=== PATIENT | female | born 1965 | race Caucasian/White ===

== ENCOUNTER → 2017-11-30 07:32 | Outpatient (CLI) | payer OTHER, SELFPAY ==
--- NOTE | 2017-11-30 07:35 | HPBI_ITS ---
MAMMOGRAPHY - BILATERAL SCREENING REASON FOR EXAM: Female, 52 years old. Routine annual screening examination. PERTINENT HISTORY: Non-contributory. History of possible infection in the lower inner aspect of the right breast. TECHNIQUE: Digital bilateral breast misael (3D mammographic acquisition) in the CC and MLO projections. 2-D mediolateral oblique (MLO) and craniocaudad (CC) views of both breasts were obtained. CAD: Full Field Digital Mammography with Computer Added Detection was performed. COMPARISON: Comparison is made with prior study dated October 06, 2016 and April 23, 2013. FINDINGS: Breast Composition: The breasts are extremely dense, which lowers the sensitivity of mammography. There is a 1.8 cm Bard 1.7 cm nodular density in the inferior medial aspect of the right breast. An adjacent nodular density measuring 1.4 cm is also seen. Correlation with ultrasound is recommended for further evaluation. A tissue clip marker is once again seen in the deep upper medial aspect of the right breast. No other significant abnormalities are identified. HPBI/SCREENING MAMM (CAD), BILAT IMPRESSION: Nodular density seen in the inferior medial aspect of the right breast as described. Correlation with ultrasound is recommended. ASSESSMENT CATEGORY: BIRADS Category 0: Incomplete. Need additional imaging evaluation. A letter regarding these results will be sent to the patient by the facility within 30 days. Approximately 10% of breast cancers are not detected by mammography. A normal mammogram should not delay biopsy of a clinically suspicious abnormality. [id number] Electronically Signed: Josef Wright MD at 8:53 EST Tel [phone], Service support ,
== END ==
PROVIDERS: Family Provider Family Medicine; PCP Family Medicine; Visit Provider Obstetrics & Gynecology
DX: N63.14 Unspecified lump in the right breast, lower inner quadrant (principal)
CPT/HCPCS: 77063; 77067

== ENCOUNTER → 2017-12-04 15:03 | Outpatient (CLI) | payer OTHER, SELFPAY ==
--- NOTE | 2017-12-04 15:08 | US_ITS ---
STUDY: ULTRASOUND BREAST - RIGHT REASON FOR EXAM: Female, 52 years old. Abnormal screening mammogram. History of prior right breast surgery due to staphylococcus infection. TECHNIQUE: Axial and longitudinal images of the RIGHT breast were performed with a high resolution ultrasound transducer. COMPARISON: Comparison is made with prior mammogram dated November 30, 2017. FINDINGS: RIGHT Breast: At the 4:00 position breast at 3 cm from nipple, there is a 1.5 cm x 1.9 cm x 1.3 cm irregular spiculated hypoechoic density. A biopsy is recommended for further evaluation. At the 5:00 position of the breast at 3 cm from nipple, there is a 6 mm x 7 mm x 5 mm hypoechoic well-defined nodule. At the 3:30 position of the breast at 3 sinus from nipple, there is a 1.1 cm x 0.9 cm x 0.9 cm cyst. US/Breast Limited Unilateral IMPRESSION: Suspicious nodule measuring 1.5 cm x 1.9 cm x 1.3 cm is seen at the 4:00 position of the breast at 3 cm from nipple. A biopsy is recommended for further evaluation. ASSESSMENT CATEGORY: BIRADS Category 4: Suspicious - Biopsy Should Be Considered. A letter regarding these results will be sent to the patient by the facility within 30 days. Electronically Signed: Josef Wright MD at 8:04 EST Tel [phone], Service support ,
== END ==
PROVIDERS: Family Provider Family Medicine; PCP Family Medicine; Visit Provider Obstetrics & Gynecology
DX: R92.2 Inconclusive mammogram (principal)
CPT/HCPCS: 76642

== ENCOUNTER → 2017-12-18 12:17 | Outpatient (CLI) | payer OTHER, SELFPAY ==
--- NOTE | 2017-12-18 | IMM_PTH ---
PATIENT: BRUNILDA GAMING LOC: [facility] U#:[id number] AGE/SX: 60/F ROOM: RE12/18/[address]: Dr. Shahzad Mckay MD : 1965 BED: DIS: SPEC #: [id number] RECD: 12/19/17 11:12 STATUS: ELEAZAR REQ #: [id number] SYLVIA: 12/18/17 00:[address]: Shahzad Mckay DEPT: IMMUNOHISTOCHEMISTRY RECD BY: Zita Garland ENTERED: 12/19/17 11:13 SP TYPE: IMMUNO OTHR DR: Dr. Kevin Evans MD Tissues: Right breast, NOS Procedures: CALPONIN-1 (add) CK5-6 (add) CK8 (add) E-CAD (add) HER2 ANNA (add) KI-67 (add) P53 (add) VT (add) P40 (add) ER (initial) PHYSICIAN & INSTITUTION [address] [address] SPECIMEN INFORMATION: Tissue Source: Right breast Clinical Info: Abnormal mammogram Specimen Number: [id number] CPT code: 93294, 85777 x6, 89965 x3 METHODOLOGY: Deparaffinized sections of prefer/formalin-fixed tissue or PAP/DQ stained slides are incubated with monoclonal/polyclonal antibodies/oligonucleotide probes. Localization is made via biotin free immunoperoxidase method. Appropriate controls are performed and reacted as expected. Results on target cell population are indicated in the following table: RESULTS: ANTIBODY / CLONE RESULT P53 (DO-7) positive, 10% variable Ki-67 (30-9) positive, moderate CK8 (98bnkgI49) positive CK5-6 (D5 & 1684) negative Calponin-1 (VE179H) negative P40 (BC28) negative E-Cad (ECH-6) positive MORPHOMETRIC ANALYSIS ER (clone 6F11) >95%, strong VT (clone 16/1E2) >95% Her-2Neu (clone CB11) 0 The prognostic test for HER2 is performed on formalin-fixed paraffin embedded tissue. A 3+ (positive) staining pattern is defined as intense, homogeneous, complete, circumferential membranous staining in >10% of contiguous tumor cells. A similar weak (2+) staining pattern is interpreted as equivocal. TALISHA follow-up testing is recommended for all equivocal cases. Positivity/negativity for ER/VT is reported if > or < 1% of the tumor cells are immuno- reactive, respectively. The ASCO/CAP criteria is used for scoring. Reference: Journal of Clinical Oncology, 2013; 31:2066-0563 & 2010; 16:5881-4789. Duration of fixation: 10 Hrs; Sample Adequate: Yes. These assays have not been validated on decalcified tissues. Results should be interpreted with caution given the likelihood of false negativity on decalcified specimens. These tests were developed and their performance characteristics determined by [facility]. They may not have been cleared or approved by the U.S. Food and Drug Administration. The FDA has determined that such clearance or approval is not necessary. INTERPRETATION: Right breast, ultrasound-guided needle core biopsy: Invasive ductal carcinoma. Positive for estrogen receptors (favorable prognostic indicator). Positive for progesterone receptors (favorable prognostic indicator). Negative for overexpression of WKH9tgp. AM:laine 12/20/17
--- NOTE | 2017-12-18 09:30 | BRBX_PTH ---
PATIENT: BRUNILDA GAMING LOC: [facility] U#:[id number] AGE/SX: 60/F ROOM: RE12/18/[address]: Dr. Shahzad Mckay MD : 1965 BED: DIS: SPEC #: [id number] RECD: 12/18/17 12:07 STATUS: ELEAZAR REHalina #: [id number] SYLVIA: 12/18/17 09:[address]: Shahzad Mckay DEPT: SURGICAL PATHOLOGY RECD BY: Christopher Miles ENTERED: 12/18/17 13:49 SP TYPE: BREAST BX OTHR DR: MD Dr. Carey Shukla MD Tissues: Right breast, NOS Procedures: Surgery Specimen Level IV HEADER OPERATION: Ultrasound-guided needle core biopsy, right breast PRE-OP DIAGNOSIS: Abnormal mammogram R92.8 TISSUE SUBMITTED: Needle core biopsy, right breast ISCHEMIC TIME: <30 seconds FIXATION TIME: 10 hours MICROSCOPIC DIAGNOSIS Right breast, ultrasound-guided needle core biopsy: Invasive ductal carcinoma with the following characteristics: Maximal length ? 1 cm Nuclear Grade ? 2/3 Other findings ? focal intraductal hyperplasia without atypia and mild fibrocystic change. AM:laine 12/19/17 COMMENT ER/MA/Wbz4rnp studies are being performed on sections of tumor and the results from this study will be reported separately ([id number]). MICROSCOPIC DESCRIPTION Slides are reviewed. GROSS DESCRIPTION Received in fixative is one container labeled with the patient's name and designated breast biopsy. The specimen consists of two elongated fragments of gudino tissue with an average length of 1.5 cm and average diameter of 0.1 cm. The specimen is totally submitted in one cassette. / AM:laine 12/18/17 TC:0 CPT: 50211
== END ==
PROVIDERS: Family Provider Family Medicine; PCP Family Medicine; Visit Provider Surgery
DX: R92.8 Other abnormal and inconclusive findings on diagnostic imaging of breast (principal)
CPT/HCPCS: 88305; 88341; 88342

== ENCOUNTER → 2018-01-02 07:55 | Outpatient (CLI) | payer OTHER, SELFPAY ==
--- NOTE | 2018-01-02 07:58 | MRI_ITS ---
STUDY: BILATERAL BREAST MR WITHOUT AND WITH CONTRAST REASON FOR EXAM: Female, 52 years old. Diagnosis of malignant neoplasm of the upper inner quadrant of right breast by biopsy December 18, 2017. Preoperative evaluation. History of prior staph infection in 1983. TECHNIQUE: Multi-sequence multi-echo imaging of both breasts was performed with a dedicated breast coil. T1-weighted and T2-weighted images were performed before the administration of contrast. T1-weighted images were also performed after the administration of 6 mL of Gadavist contrast intravenously without complications. COMPARISON: Bilateral mammograms dated April 23, 2013 and November 30, 2017 and right breast ultrasound dated December 04, 2017. FINDINGS: RIGHT BREAST: The breast tissue is scattered fibroglandular densities with moderate background enhancement. In the upper inner quadrant of the right breast in the area of the abnormality seen on the ultrasound and mammogram, there is an enhancing irregular mass measuring approximately 1.8 cm x 1.3 cm x 1.6 cm. This enhancing area is likely a combination of the known index lesion and the sequelae of the biopsy. The original mass on ultrasound measured 1.5 cm x 1.9 cm x 1.3 cm, slightly smaller than on the breast MRI study. LEFT BREAST: The breast tissue is scattered fibroglandular densities with moderate background enhancement. There are no abnormal enhancing masses or areas of non-mass enhancement in the left breast. There are no enlarged or abnormal lymph nodes. There is no abnormality in the visualized regions of the chest or liver. MRI/Breast w/o and/or W Cont Bilat IMPRESSION: Irregular enhancing mass in the upper inner quadrant of the right breast, as outlined above, representing the index lesion. No other significant abnormality identified. CATEGORY: BIRADS Category 6: Known Biopsy-Proven Malignancy - Appropriate Action Should Be Taken. A letter regarding these results will be sent to the patient by the facility within 30 days. Electronically Signed: Estuardo Ross MD at 14:43 EST , Service support ,
== END ==
PROVIDERS: Family Provider Family Medicine; PCP Family Medicine; Visit Provider Surgery
DX: C50.211 Malignant neoplasm of upper-inner quadrant of right female breast (principal)
CPT/HCPCS: 77059; A9585; A4216; C8908

== ENCOUNTER 2018-01-21 05:39 | Day surgery (SDC) | payer OTHER, SELFPAY ==
--- NOTE | 2018-01-21 | IMM_PTH ---
PATIENT: BRUNILDA GAMING LOC: [facility] U#:[id number] AGE/SX: 52/F ROOM: RE01/21/[address]: Dr. Shahzad Mckay MD : 1965 BED: DIS: 01/21/2018 SPEC #: [id number] RECD: 01/23/18 14:20 STATUS: ELEAZAR REHalina #: [id number] SYLVIA: 01/21/18 00:[address]: Shahzad Mckay DEPT: IMMUNOHISTOCHEMISTRY RECD BY: Zita Garland ENTERED: 01/23/18 14:36 SP TYPE: IMMUNO OTHR DR: Dr. Kevin Evans MD Tissues: A - Axillary lymph node, NOS C - Axillary lymph node, NOS Procedures: CK8 (add) Pankeratin (initial) Pankeratin (add) PHYSICIAN & INSTITUTION [place] [address] SPECIMEN INFORMATION: Tissue Source: A ? [place] node right breast, C ? Additional lymph nodes, right breast Clinical Info: Invasive ductal carcinoma, right breast Specimen Number: [id number] A, C1-C3 CPT code: 76284 x2, 13770 x6 METHODOLOGY: Deparaffinized sections of prefer/formalin-fixed tissue or PAP/DQ stained slides are incubated with monoclonal/polyclonal antibodies/oligonucleotide probes. Localization is made via biotin free immunoperoxidase method. Appropriate controls are performed and reacted as expected. Results on target cell population are indicated in the following table: RESULTS: ANTIBODY / CLONE RESULT Block A AE1-3 (AE1/AE3/PCK26) negative CK8 (31tudeF74) negative Block C1 AE1-3 (AE1/AE3/PCK26) negative CK8 (93gnqeP03) negative Block C2 AE1-3 (AE1/AE3/PCK26) negative CK8 (35rsgiK23) negative Block C3 AE1-3 (AE1/AE3/PCK26) negative CK8 (65xdzsP61) negative These tests were developed and their performance characteristics determined by [facility]. They may not have been cleared or approved by the U.S. Food and Drug Administration. The FDA has determined that such clearance or approval is not necessary. INTERPRETATION: A. [place] node, right breast: One out of one lymph node negative for carcinoma. C. Additional lymph nodes, right breast: Four out of four lymph nodes negative for carcinoma. AM:laine 01/23/18 Comment: A ? This lymph node contains micrometastatic carcinoma in one H & E section.
[2018-01-21 05:55] VITALS: BP 102/57; PULSE 70; RESP 14; TEMP 36.2; O2SAT 99; BMI 20.5
[2018-01-21 06:01] LABS: Internal QC Validated? YES +Cl - CLEAR BKGD; Pregnancy, Urine Negative Negative
[2018-01-21] MEDS: Bupivacaine Mpf 0.5% 30 ML VIAL (06:50)
[2018-01-21] MEDS: Cefazolin 2 GM in 0.9% Normal Saline 100 ML IV (07:12)
[2018-01-21] MEDS: Isosulfan Blue 1% 5 ML Vial (07:20)
--- NOTE | 2018-01-21 07:46 | HPBI_ITS ---
SURGICAL BREAST SPECIMEN RADIOGRAPH CLINICAL: Document presence of mass in biopsy specimen. FINDINGS: Specimen shows presence of mass. Electronically Signed: Josef Wright MD at 8:57 EDT Tel [phone], Service support , HPBI/Breast Biopsy Specimen
--- NOTE | 2018-01-21 07:51 | AXNB_PTH ---
PATIENT: BRUNILDA GAMING LOC: [facility] U#:[id number] AGE/SX: 52/F ROOM: RE01/21/[address]: Dr. Shahzad Mckay MD : 1965 BED: DIS: 01/21/2018 SPEC #: [id number] RECD: 01/21/18 07:54 STATUS: ELEAZAR REHalina #: [id number] SYLVIA: 01/21/18 07:[address]: Shahzad Mckay DEPT: SURGICAL PATHOLOGY RECD BY: Jalen Amin ENTERED: 01/21/18 11:25 SP TYPE: AX NODE BX OTHR DR: Dr. Kevin Evans MD Tissues: A - Axillary lymph node, NOS B - Right breast, NOS C - Axillary lymph node, NOS D - Skin of breast, NOS Procedures: Frozen Section (charge) Frozen Section Add'l ([facility]) Surgery Specimen Level IV Surgery Specimen Level V Surgery Specimen Level Frozen (no charge) HEADER OPERATION: Right breast, lumpectomy, sentinel node biopsy, NL in OR PRE-OP DIAGNOSIS: Invasive ductal carcinoma, right breast ER positive TISSUE SUBMITTED: A - [place] node right breast FS, B ? Right breast lumpectomy ? single long suture medial, double long lateral towards nipple, double short posterior towards muscle, C - Additional lymph nodes right breast FS, D - Ellipse of skin biopsy site right breast FROZEN SECTION DIAGNOSIS A. [place] lymph node, right breast: One lymph node positive for metastatic carcinoma (~2 mm in greatest dimension). C. Additional lymph nodes, right breast: Four out of flour lymph nodes, negative for metastatic carcinoma SJ:cc 01/21/18 MICROSCOPIC DIAGNOSIS A. Right axillary sentinel lymph node #1, biopsy: One out of one lymph node positive for micrometastatic carcinoma (1.5 mm in greatest dimension). B. Right breast, lumpectomy: Invasive ductal carcinoma. See complete cancer check list below. C. Right axillary additional sentinel lymph nodes, biopsy: Four out of four lymph nodes negative for metastatic carcinoma. D. Right breast, biopsy site, skin: No pathologic change. No evidence of carcinoma. AM:laine 01/23/18 COMMENT A. The focus of metastatic carcinoma measuring 1.5 mm is present in one frozen section slide only. A & C. Immunohistochemistry ([id number]) supports the above diagnosis. B. INVASIVE BREAST CANCER SUMMARY: Specimen: Partial breast Procedure: Excision with wire guidance Specimen integrity: Single intact specimen. Specimen size: 6 x 5 x 2.5 cm Specimen laterality: Right breast Invasive tumor size: 2.2 x 1.5 x 1.5 cm Tumor focality: Single focus of invasive carcinoma Macroscopic and Microscopic extent of tumor: Skin: Not present Nipple: Not present Skeletal muscle: Not present Histologic type of invasive carcinoma: Invasive ductal carcinoma Histologic Grade (Albert grade): Glandular/tubular differentiation score: 2 Nuclear pleomorphism score: 3 Mitotic count score: 1 Overall grade: Grade 2 (total score of 6) Margins: Uninvolved by invasive carcinoma. Distance from closest (inferior) margin: 0.1 cm Lymph-Vascular invasion: Not identified Dermal lymph-vascular invasion: Not applicable Ductal carcinoma in situ (DCIS): Estimated size (extent) of DCIS: 6 x 2 x 2 mm Number of blocks with DCIS: 3 of 12 Architectural patterns: Cribriform Nuclear grade: Grade 2 Necrosis: Not focally present Margins: Uninvolved by invasive carcinoma. Distance from closest (inferior) margin: 0.1 cm Lobular carcinoma in situ (LCIS): Not present Lymph nodes: Number of sentinel lymph nodes examined - 5 Total number of lymph nodes examined (sentinel and nonsentinel) ? 5 Number of lymph nodes positive for micrometastatic carcinoma ? 1 (see specimen A) No evidence of macrometastatic carcinoma or isolated tumor cells. Microcalcifications: Present in non-neoplastic tissue Treatment effect - no known presurgical therapy Additional pathologic findings: Fibrocystic change, usual intraductal hyperplasia and focal atypical intraductal hyperplasia and changes consistent with previous biopsy. Ancillary studies: Previously performed on same tumor ([id number] / [id number]). ER: >95%, nuclear stain CO: >95% nuclear stain Her2 ravi: 0 (IHC) Her2 by dual TALISHA: Not performed PATHOLOGIC STAGE: pT2 N1mi Mx The above summary is in compliance with [employer] [place] [employer] (CAP) Cancer Protocols Checklist and [place] [employer] Committee on Cancer (AJCC), Staging Manual, 8th Ed. MICROSCOPIC DESCRIPTION Slides are reviewed. GROSS DESCRIPTION A - Received fresh for frozen section diagnosis labeled with the patient's name is a specimen designated sentinel node right breast. The specimen consists of a piece of adipose tissue containing a nodule consistent with lymph node measuring 3 x 1.5 x 1 cm. The specimen is bisected and submitted entirely for frozen section diagnosis in one cassette. / SJ:laine 01/21/18 B - Received fresh for intraoperative consultation labeled with the patient's name and designated right breast lumpectomy. The specimen consists of a piece of yellow adipose tissue with needle localization measuring 6 x 5 x 2.5 cm. The specimen is oriented as follows: single long suture - medial, double long suture - lateral, double short suture - posterior towards nipple. The specimen is inked as follows: anterior ? yellow, posterior ? black, superior ? blue, inferior ? green, medial ? red and lateral ? orange. Serial sections reveal a mass measuring 2.2 x 1.5 x 1.5 cm. This mass is 0.1 cm away from the closest inferior margin. This information is conveyed to the surgeon intraoperatively. Newsp[employer] Column[employer] sections are submitted in 12 cassettes as follows: 1 ? perpendicular superior, inferior and posterior margins, 2 ? perpendicular medial and lateral margins, 3-9 ? entire tumor with closest anterior margin, 10-12 ? district representative sections from other areas of uninvolved breast tissue. / SJ:laine 01/22/18 C - Received fresh for frozen section diagnosis labeled with the patient's name is a specimen designated additional lymph nodes right breast. The specimen consists of a piece of adipose tissue measuring 3.5 x 3.5 x 1 cm. Four lymph nodes are identified measuring 0.3 to 1 cm in greatest dimension. The lymph nodes are submitted in entirety for frozen section diagnosis in three cassettes as follows: 1 ? frozen section, one bisected lymph node, 2 ? frozen section, two lymph nodes, one lymph node inked black and other lymph node inked blue, 3 ? frozen section, one bisected lymph node. / SJ:laine 01/21/18 D - Received in fixative is one container labeled with the patient's name and designated ellipse of skin biopsy site, right breast. The specimen consists of a piece of gudino-white skin ellipse measuring 0.5 x 0.2 x 0.2 cm. The entire specimen is submitted in one cassette. / ESTUARDO:laine 01/21/18 TC:0 CPT: 51855, 77603 x2, 23507, 71303, 11331 x2, 26260 x2
--- NOTE | 2018-01-21 07:56 | PCM.OPRPT ---
Problem List (1) Malignant neoplasm of lower-inner quadrant of right female breast Status: Acute Qualifiers: Estrogen receptor status: positive Qualified Code(s): C50.311 - Malignant neoplasm of lower-inner quadrant of right female breast; Z17.0 - Estrogen receptor positive status [ER+] Report of Operation Date of Procedure: 01/21/18 Pre-Operative Diagnosis: C50.311 malignancy of the lower inner quadrant of the right breast. Z17.0 estrogen receptor positive Post-Operative Diagnosis: Same Surgery/Procedure Performed:: 1. 97528 Ultrasound-guided wire localization of malignancy of lower inner quadrant of right breast. 2. 29335 Injection of 5 cc of Lymphazurin blue so, really at the right breast. 3. 07300 Partial mastectomy with right axillary node dissection. 4. 20601 [place] lymph node biopsy right breast Type of Anesthesia:: General Anesthesiologist: Irineo Mccord Estimated Blood Loss (mL): < 25cc flu Fluids Replaced: 700cc Description of Procedure: Patient was brought into the operating room. Placed in the supine position. Under excellent general anesthetic the breast was prepped with alcohol. I ultrasound and identified the lesion with which was in the lower inner quadrant of the breast. I placed a guidewire into the lesion. I then injected 5 cc of Lymphazurin blue. I massaged the breast for 5 minutes. The breast and axillary area were then sterilely prepped and draped in the usual fashion. I made an incision around the previous biopsy site and extended the incision medially. I dissected down using the guidewires my guide I stayed close to the skin and remove this lesion all the way down to the muscle and then rotated it from a medial to lateral standpoint and transected it laterally with use of electrocautery. I marked my incision with single long medial double long lateral towards the nipple double short posterior towards the muscle and the guidewire came out anterior towards the skin. The skin was not involved with this tumor whatsoever. I use electrocautery for good hemostasis. The wound was brought together with deep dermal stitches of 3-0 Vicryl then a running 4-0 Monocryl. I injected local into the axilla made an incision and dissected down and including the clavipectoral fascia I immediately identified a blue lymph node with the use of the harmonic dissector remove this. I sent this for frozen section and it came back positive for metastatic cancer. I then performed a limited axillary node dissection taking out level 1 lymph nodes with the use of the harmonic dissector. I sent these to pathology for frozen section these came back negative. The axilla was closed with deep subcu sutures of 2-0 Vicryl then deep dermal sutures of 3-0 Vicryl. Dermabond was applied. I spoke to the patient postoperatively and let her know that her lymph node was positive. I still think that she is able to go home and will discharge her. I will see her back in 1 week and go over the final path report with her at that time. - Admit VTE Documentation VTE Present on Admission: No VTE Mechan Device Prophylaxis: SCD's VTE Pharm Prophylaxis ordered?: No Reason prophylaxis not ordered:: Treatment Not Indicated
--- NOTE | 2018-01-21 08:00 | DCINST_ITS ---
Discharge Diet: No Restrictions Discharge Activity: May Not Drive - for 2-3 days or while taking narcotic pain meds. May shower in (days): 1 Lifting Restrictions: 10 pounds for 1 week. Call your doctor if your incision/area has: Continuous Slow Oozing, Sudden Increased Bleeding Call your doctor if you observe: Fever of 101 or Higher Suture Line Care: Avoid Pulling/Pushing, Avoid Pinching/Bending Remove Dressing in (days):: 1 - Remove bulky dressing tomorrow. May leave any opsite dressing for 3-4 days. Keep dressing in place until your follow-up appointment. Additional Dressing/Incision Instructions:: Remove bulky dressing tomorrow. May leave any opsite dressing for 3-4 days. Keep dressing in place until your follow-up appointment. Allergies/Adverse Reactions: Allergies environmental Allergy (Mild, Uncoded 01/15/18 15:28) Unknown Medications to take at Discharge albuterol sulfate HFA 90 mcg/actuation aerosol inhaler 1 puff INHALATION PRN PRN 12/14/17 fluticasone 100 mcg-salmeterol 50 mcg/dose blistr powdr for inhalation 1 puff INHALATION BID 12/14/17 fluticasone 50 mcg/actuation nasal spray,suspension 50 mcg INTRANASAL QDAY PRN 12/14/17 levothyroxine 100 mcg capsule 100 mcg PO DAILY 12/14/17 Oxycodone HCl/Acetaminophen [Percocet 5/325] 1 - 2 tab PO Q4H PRN PRN 4 Days # 30 tab 01/21/18 The following prescriptions were given: Oxycodone HCl/Acetaminophen [Percocet 5/325] 1 - 2 tab PO Q4H PRN PRN 4 Days # 30 tab PRN Reason: Pain Primary Care Physician: Kevin Evans [Primary Care Provider] -
--- NOTE | 2018-01-21 08:00 | OP.PCM_ITS ---
Problem List (1) Malignant neoplasm of lower-inner quadrant of right female breast Status: Acute Qualifiers: Estrogen receptor status: positive Qualified Code(s): C50.311 - Malignant neoplasm of lower-inner quadrant of right female breast; Z17.0 - Estrogen receptor positive status [ER+] Report of Operation Date of Procedure: 01/21/18 Pre-Operative Diagnosis: C50.311 malignancy of the lower inner quadrant of the right breast. Z17.0 estrogen receptor positive Post-Operative Diagnosis: Same Surgery/Procedure Performed:: 1. 61784 Ultrasound-guided wire localization of malignancy of lower inner quadrant of right breast. 2. 08339 Injection of 5 cc of Lymphazurin blue so, really at the right breast. 3. 66137 Partial mastectomy with right axillary node dissection. 4. 49871 [place] lymph node biopsy right breast Type of Anesthesia:: General Anesthesiologist: Irineo Mccord Estimated Blood Loss (mL): < 25cc flu Fluids Replaced: 700cc Description of Procedure: Patient was brought into the operating room. Placed in the supine position. Under excellent general anesthetic the breast was prepped with alcohol. I ultrasound and identified the lesion with which was in the lower inner quadrant of the breast. I placed a guidewire into the lesion. I then injected 5 cc of Lymphazurin blue. I massaged the breast for 5 minutes. The breast and axillary area were then sterilely prepped and draped in the usual fashion. I made an incision around the previous biopsy site and extended the incision medially. I dissected down using the guidewires my guide I stayed close to the skin and remove this lesion all the way down to the muscle and then rotated it from a medial to lateral standpoint and transected it laterally with use of electrocautery. I marked my incision with single long medial double long lateral towards the nipple double short posterior towards the muscle and the guidewire came out anterior towards the skin. The skin was not involved with this tumor whatsoever. I use electrocautery for good hemostasis. The wound was brought together with deep dermal stitches of 3-0 Vicryl then a running 4-0 Monocryl. I injected local into the axilla made an incision and dissected down and including the clavipectoral fascia I immediately identified a blue lymph node with the use of the harmonic dissector remove this. I sent this for frozen section and it came back positive for metastatic cancer. I then performed a limited axillary node dissection taking out level 1 lymph nodes with the use of the harmonic dissector. I sent these to pathology for frozen section these came back negative. The axilla was closed with deep subcu sutures of 2-0 Vicryl then deep dermal sutures of 3-0 Vicryl. Dermabond was applied. I spoke to the patient postoperatively and let her know that her lymph node was positive. I still think that she is able to go home and will discharge her. I will see her back in 1 week and go over the final path report with her at that time. - Admit VTE Documentation VTE Present on Admission: No VTE Mechan Device Prophylaxis: SCD's VTE Pharm Prophylaxis ordered?: No Reason prophylaxis not ordered:: Treatment Not Indicated
[2018-01-21 08:45] VITALS: BP 102/57; BP 104/60; PULSE 78; RESP 18; TEMP 36.4; O2SAT 97
[2018-01-21 09:00] VITALS: BP 102/57; BP 110/64; PULSE 77; RESP 18; O2SAT 98
[2018-01-21 09:15] VITALS: BP 102/57; BP 110/63; PULSE 71; RESP 18; O2SAT 98
[2018-01-21 09:27] VITALS: BP 102/57; BP 98/61; PULSE 64; RESP 18; TEMP 36.4; O2SAT 98
[2018-01-21 10:30] VITALS: BP 102/57
== END 2018-01-21 10:31 | disposition home or self-care (01) ==
LOC: SDC 05:42 → AC 05:42
PROVIDERS: Anesthesiology; Family Provider Family Medicine; PCP Family Medicine; Visit Provider Surgery
PROC: (CPT 19301; principal; 2018-01-21 07:00)
DX: C50.311 Malignant neoplasm of lower-inner quadrant of right female breast (principal); C77.3 Secondary and unspecified malignant neoplasm of axilla and upper limb lymph nodes; Z17.0 Estrogen receptor positive status [ER+]; J45.909 Unspecified asthma, uncomplicated; E03.9 Hypothyroidism, unspecified; Z79.899 Other long term (current) drug therapy; Z80.0 Family history of malignant neoplasm of digestive organs
CPT/HCPCS: 00404; 19302; 38525; 38900; 76098; 81025; 88305; 88307; 88309; 88331; 88332; 88341; 88342; J7120; A4216; Q9968

== ENCOUNTER 2018-02-04 12:23 | Day surgery (SDC) | payer OTHER, SELFPAY ==
[2018-02-04] VITALS (10 sets, daily range): BP systolic 102–112; BP diastolic 44–70; PULSE 53–69; RESP 14–18; TEMP 36.7–36.8; O2SAT 96–100; BMI 21.3
[2018-02-04 12:55] LABS: Internal QC Validated? YES +Cl - CLEAR BKGD; Pregnancy, Urine Negative Negative
[2018-02-04] MEDS: Cefazolin 2 GM in 0.9% Normal Saline 100 ML IV (13:28)
--- NOTE | 2018-02-04 13:36 | DCINST_ITS ---
Discharge Diet: No Restrictions - Pain medication may cause nausea. You should typically eat light foods as you take your pain medication. Discharge Activity: May Shower - with the bandage in place 1-2 days after surgery. DO NOT SHOWER WHEN YOUR PORT IS ACCESSED. Additional Activity Instructions:: May not drive, work with heavy equipment, or sign legal documents for [address] if you are no longer taking narcotic pain medications. You may drive when you are no longer taking pain medications. Additional Dressing/Incision Instructions:: Leave the bandage on for 2-3 days. When you remove the bandage, leave the steri-strips intact until they fall off. Allergies/Adverse Reactions: Allergies oxycodone [From Percocet] Allergy (Mild, Verified 02/01/18 11:22) Hives environmental Allergy (Mild, Uncoded 02/01/18 11:22) Unknown Medications to take at Discharge albuterol sulfate HFA 90 mcg/actuation aerosol inhaler 1 puff INHALATION PRN PRN 12/14/17 fluticasone 100 mcg-salmeterol 50 mcg/dose blistr powdr for inhalation 1 puff INHALATION BID 12/14/17 fluticasone 50 mcg/actuation nasal spray,suspension 50 mcg INTRANASAL QDAY PRN 12/14/17 levothyroxine 100 mcg capsule 100 mcg PO DAILY 12/14/17 Hydrocodone Bitart/Apap 5-325 [[place] 5MG-325MG] 1 - 2 tab PO Q4H PRN PRN 4 Days #30 tab 02/04/18 The following prescriptions were given: Hydrocodone Bitart/Apap 5-325 [[place] 5MG-325MG] 1 - 2 tab PO Q4H PRN PRN 4 Days #30 tab PRN Reason: Pain Primary Care Physician: Kevin Evans [Primary Care Provider] - Please Follow Up With: Shahzad Mckay MD - [phone] When: Please plan to follow up in 7 days in the office.
--- NOTE | 2018-02-04 13:36 | PCM.OPRPT ---
Problem List (1) Malignant neoplasm of lower-inner quadrant of right female breast Status: Chronic Qualifiers: Estrogen receptor status: positive Report of Operation Date of Procedure: 02/04/18 Pre-Operative Diagnosis: c50.311 right breast cancer lower inner quadrant Post-Operative Diagnosis: Same Surgery/Procedure Performed:: Left IJ PowerPort Type of Anesthesia:: MAC Anesthesiologist: Irineo Mccord Description of Procedure: Patient was brought into the operating room placed in the supine position. The patient was then placed in the headdown position and I ultrasound her neck and identified the left internal jugular vein. I marked the neck and chest appropriately. The neck and chest were then sterilely prepped and draped in the usual fashion. Local was injected in the neck Seldinger's technique was used to gain access to the internal jugular vein with the aid of ultrasound guidance. I placed the guidewire through the needle removed the needle and then used fluoroscopy to confirm proper placement of the guidewire. I injected local into the chest. Incision was made. Electrocautery was used to create a pocket for the port. A skin gucci was made in the neck. Dilator was placed over the guidewire removed the dilator and sheath were placed over the guidewire removing the dilator and guidewire a single lumen catheter was placed over the sheath. Sheath was removed that difficulty. Fluoroscopy was once again used to confirm proper placement of the catheter. I tunneled from the pocket over the collarbone into the neck and brought the catheter down. I cut the catheter to length placed the locking hub on the catheter the port onto the catheter and secured the 2 with the locking hub. It flushed and irrigated well was flushed with 5 cc of hep flush. The port was then sutured into the pocket created with 2 sutures of 2-0 Prolene. Skin incisions were closed with deep dermal stitches of 3-0 Vicryl and then a running 4-0 Monocryl. Dermabond was applied sterile dressings were applied and the patient tolerated the procedure well. - Admit VTE Documentation VTE Present on Admission: No VTE Mechan Device Prophylaxis: SCD's VTE Pharm Prophylaxis ordered?: No Reason prophylaxis not ordered:: Treatment Not Indicated
[2018-02-04] MEDS: Bupivacaine Mpf 0.5% 30 ML VIAL (13:43)
[2018-02-04] MEDS: 0.9% NaCl Peripheral Flush Adult/Peds IV (13:56)
--- NOTE | 2018-02-04 14:15 | RAD_ITS ---
STUDY: X-RAY CHEST REASON FOR EXAM: Female, 52 years old. POST OP LEFT VASCULAR PORT PLACEMENT TECHNIQUE: Single AP portable view of the chest. COMPARISON: None. FINDINGS: MediPort is seen on the left side is in good position its tip is at the lower part of the superior vena cava. The lungs are clear and expanded. There is no demonstrated pleural abnormality. Normal size heart. Normal mediastinum and marcello. Normal visualized pulmonary arteries. Normal visualized aortic arch and descending thoracic aorta. There is a dextroscoliosis of the thoracic spine. Normal visualized ribs, clavicles, and shoulders. There is no demonstrated abnormality of the visualized soft tissue structures of the upper abdomen. RAD/Chest 1 View (Portable) IMPRESSION: MediPort is seen on the left side is in good position its tip is at the lower part of the superior vena cava. Electronically Signed: Sean Oden MD at 14:48 EDT Tel , Service support ,
== END 2018-02-04 15:48 | disposition home or self-care (01) ==
LOC: SDC 12:24 → AC 12:26
PROVIDERS: Anesthesiology; Family Provider Family Medicine; PCP Family Medicine; Visit Provider Surgery
PROC: (CPT 36561; principal; 2018-02-04 14:55)
DX: C50.311 Malignant neoplasm of lower-inner quadrant of right female breast (principal); Z17.0 Estrogen receptor positive status [ER+]; Z45.2 Encounter for adjustment and management of vascular access device; J45.909 Unspecified asthma, uncomplicated; E03.9 Hypothyroidism, unspecified; Z79.899 Other long term (current) drug therapy
CPT/HCPCS: 36561; 71045; 77001; 81025; J7120; C1788

== ENCOUNTER → 2018-02-06 14:41 | Outpatient (CLI) | payer OTHER, SELFPAY ==
--- NOTE | 2018-02-06 14:44 | ECHOD_ITS ---
Reason For Study: Pre Chemo, Preop Procedure This was a 2D Doppler, Color Flow transthoracic echocardiogram. Exam performed in department. Left Ventricle Normal size and thickness. The estimated ejection fraction is 50 %. Stage 1 diastolic dysfunction. There is mild global hypokinesis of the left ventricle. Right Ventricle Normal size and thickness. Normal systolic function. Atria Normal left atrium. Normal right atrium. Normal atrial septum. Mitral Valve The mitral valve is structurally normal. No prolapse or stenosis seen. Trivial eccentric mitral valve insufficiency. Tricuspid Valve Normal tricuspid valve. Mild (1+) tricuspid valve insufficiency. Right ventricular systolic pressure estimated to be 20 mmHg. Aortic Valve Normal aortic valve. Trisinus/trileaflet aortic valve. Pulmonic Valve Normal pulmonic valve. Great Vessels Normal aortic root. Normal arch. Normal inferior vena cava. Inferior vena cava collapse with sniff. Pericardium/Pleural No pericardial effusion. MMode/2D Measurements & Calculations LVIDd: 4.5 cm IVSd: 0.81 cm Ao root diam: 2.9 cm LVIDs: 3.4 cm LVPWd: 0.68 cm LA dimension: 3.2 cm RVDd: 2.4 cm FS: 25.3 % LAV(MOD-bp): 31.4 ml EDV(MOD-sp4): 93.8 ml SV(MOD-sp4): 53.3 ml LAV(MOD-bp) Indexed: 18.7 ml/m2 ESV(MOD-sp4): 40.6 ml LAV(MOD-sp2): 36.5 ml EF(MOD-sp4): 56.8 % LAV(MOD-sp4): 26.4 ml LA A4 area: 12.6 cm2 RA A4 area: 10.1 cm2 Doppler Measurements & Calculations MV E max donald: 53.5 cm/sec Lat Peak E' Donald: 12.1 cm/sec Med Peak E' Donald: 6.4 cm/sec MV A max donald: 71.8 cm/sec E/E' lat: 4.4 E/E' med: 8.4 MV E/A: 0.74 Ao V2 max: 105.0 cm/sec LV V1 max: 92.6 cm/sec PA V2 max: 90.5 cm/sec Ao max P.4 mmHg LV V1 max P.4 mmHg Ao V2 mean: 70.5 cm/sec Ao mean P.3 mmHg Ao V2 VTI: 20.2 cm TR max donald: 194.4 cm/sec TR max P.2 mmHg Interpretation Summary The estimated ejection fraction is 50 %. There is mild global hypokinesis of the left ventricle. Stage 1 diastolic dysfunction. Trivial eccentric mitral valve insufficiency. Mild (1+) tricuspid valve insufficiency. Right ventricular systolic pressure estimated to be 20 mmHg. There is no comparison study available. Ordering Physician: Dominic Presley Referring Physician: Kevin Evans Performed By: Felicia Olea RDCS, RVT
== END ==
PROVIDERS: Family Provider Family Medicine; PCP Family Medicine; Visit Provider Internal Medicine Medical Oncology
DX: Z01.818 Encounter for other preprocedural examination (principal); C50.311 Malignant neoplasm of lower-inner quadrant of right female breast
CPT/HCPCS: 93306

== ENCOUNTER → 2018-06-26 10:53 | Outpatient (CLI) | payer OTHER, SELFPAY ==
[2018-03-19 08:56] VITALS: BMI 21.2
== END ==
PROVIDERS: Family Provider Family Medicine; PCP Family Medicine; Visit Provider Nurse Practitioner Family
DX: Z13.820 Encounter for screening for osteoporosis (principal); Z79.811 Long term (current) use of aromatase inhibitors
CPT/HCPCS: 77080

== ENCOUNTER 2018-07-09 10:16 | Day surgery (SDC) | payer OTHER, SELFPAY ==
[2018-03-19 08:56] VITALS: BMI 21.2
[2018-07-09 11:00] VITALS: BP 111/52; PULSE 80; RESP 16; TEMP 36.8; O2SAT 97; BMI 20.9
[2018-07-09 11:17] LABS: Prothrombin Time (Protime)PT. 12.7 SECONDS (11.7-14.9)
[2018-07-09 11:18] LABS: Partial Thromboplast Time 30.7 Seconds (24.1-36.2)
--- NOTE | 2018-07-09 11:51 | PCM.DC ---
- Discharge Diagnoses Reason(s) for Visit for Discharge Instructions: laparoscopic bilateral salpingoophorectomy You will use the following diet at home:: No restrictions Discharge Activity: May not drive while taking narcotic pain medications., May Shower, May Take a Tub Bath Return to work on:: 07/15/18 - Ok to return to work sooner, if comfortable. May resume sexual activity in: 1 week Call your doctor if your incision/area has: Increased Pain/ Swelling Call your doctor if you observe: Fever of 101 or Higher, Inability to have a bowel movement, Uncontrolled pain Change Dressing in (Days):: 4 Remove Dressing in (days):: 4 Cleanse incision/area with: Soap & Water, Keep Dressing Clean & Dry Additional Instructions: OK to resume activity as tolerated, comfortable. Take either TWO Aleve or THREE Ibuprofen (200 mg each) every 8 hr for pain. Add Vicodin 1 to 2 tab every 6 hr as needed for more severe pain. Allergies/Adverse Reactions: Allergies oxycodone [From Percocet] Allergy (Mild, Verified 07/05/18 08:07) Hives environmental Allergy (Mild, Uncoded 07/05/18 08:07) Unknown Medications to take at Discharge albuterol sulfate HFA 90 mcg/actuation aerosol inhaler 1 puff INHALATION PRN PRN 12/14/17 fluticasone 100 mcg-salmeterol 50 mcg/dose blistr powdr for inhalation 1 puff INHALATION BID 12/14/17 fluticasone 50 mcg/actuation nasal spray,suspension 50 mcg INTRANASAL QDAY PRN 12/14/17 levothyroxine 100 mcg capsule 100 mcg PO DAILY 12/14/17 Vitamin B Complex [Balanced B-50] 1 tablet PO DAILY 03/06/18 Ferrous Gluconate 325 mg PO BID 05/13/18 Hydrocodone/Acetaminophen [Vicodin 5-300 mg Tablet] 1 - 2 tablet PO Q6H PRN PRN 2 Days #10 tablet 07/09/18 Naproxen [Naprosyn] 250 - 500 mg PO TID PRN PRN #30 tab 07/09/18 The following prescriptions were given: Hydrocodone/Acetaminophen [Vicodin 5-300 mg Tablet] 1 - 2 tablet PO Q6H PRN PRN 2 Days #10 tablet PRN Reason: Mod-Severe Pain (4-08/14) Naproxen [Naprosyn] 250 - 500 mg PO TID PRN PRN #30 tab PRN Reason: Mild-Mod Pain (-03/14) Primary Care Physician: Kevin Evans [Primary Care Provider] - Test Results: Test results from this visit will be discussed in further detail at your follow-up appointment, if applicable. Please Follow Up With: Carey Yen MD - [phone] When: in two weeks for postoperative appointment, incision check. Proposed Discharge Date: 07/09/18
[2018-07-09] MEDS: Bupiv/Epi 0.5% Mpf 30 ML Vial (12:30)
[2018-07-09 13:00] VITALS: BP 111/50; BP 98/67; PULSE 64; RESP 17; TEMP 37.1; O2SAT 100
[2018-07-09 13:15] VITALS: BP 111/50; BP 91/47; PULSE 54; RESP 16; O2SAT 100
[2018-07-09 13:30] VITALS: BP 111/50; BP 99/51; PULSE 61; RESP 16; O2SAT 100
[2018-07-09 13:45] VITALS: BP 111/50; BP 92/50; PULSE 52; RESP 16; TEMP 36.9; O2SAT 100
[2018-07-09 14:36] VITALS: BP 111/50; BP 92/56; PULSE 64; RESP 16; TEMP 36.3; O2SAT 97
--- NOTE | 2018-07-09 18:29 | PCM.OP.BLANK ---
Operative Report Date of Procedure: 07/09/18 PROCEDURE: Laparoscopic Bilateral Salpingoophorectomy PREOPERATIVE DIAGNOSIS: personal history of malignant neoplasm of the breast recommended bilateral salpingoophorectomy POSTOPERATIVE diagnosis: personal history of malignant neoplasm of the breast recommended bilateral salpingoophorectomy Surgeon: Carey Yen MD Anesthesia: general anesthesia. Don Tamayo CRNA Senior Marketing Engineer: none. EBL: minimal Complications: None Drains: Red Brownlee catheter used to drain the bladder prior to initiation of the case Fluids: LR replacement Findings; Normal appearing, anteverted uterus. Fallopian tubes and ovaries are WNL. Gross inspection of bowel, omentum. liver edge also WNL. photos were taken of the uterus and ovaries after Bilateral salpingooophorectomy and of the RUQ / liver edge Narrative account: After the risks, benefits, alternatives of procedure had been reviewed with the patient, informed consent was obtained. The patient was taken back to the Operating room with an IV running. she was positioned on the operating table in dorsal supine position, where she was given general anesthesia. Once asleep she was repositioned to the dorsal lithotomy position and prepped and draped in the usual sterile fashion. A red Brownlee catheter was used to drain the bladder prior to initiating the case. A sponge stick was placed into the vagina to allow manipulation of the uterus and cervix during the case. Attention was then turned to the anterior abdominal wall where 0.25 % Marcaine with epinephrine was instilled at the suprapubic and infraumbilical skin and at a point midway between in the midline. 8 cc of 0.25% Marcaine was used. Skin incisions were then created in the midline at the suprapubic skin and at the infraumbilical skin and midway between the two. While maintaining upward traction of the anterior abdominal wall a Veress needle was inserted through the umbilical incision into the peritoneal cavity. There was free drop of saline, low opening pressure and free flow of CO2 noted. Once the intraabdominal pressure had reached 12 mm of mercury the Veress needle was removed and a bladeless 5 mm trocar was placed through infraumbilical skin incision into the peritoneal cavity. Correct placement was confirmed using the scope. Under direct visualization then with the patient in Trendelenburg position, a bladeless 5 mm trocar was inserted in through suprapubic skin incision into the peritoneal cavity and at a point midway between the infraumbilical and suprapubic trocars. The uterus as anteverted and both ovaries and fallopian tubes were WNL. The R fallopian tube and ovary were grasped and retracted medially, and using a LigaSure device the fallopian tube and ovary were excised from the infundibulopelvic ligament and superior pedicle. Excellent hemostasis was noted at the excision site. The R fallopian tube and ovary were placed at the anterior cul de sac. In a similar manner the L fallopian tube and ovary were grasped and retracted medially and the fallopian tube and ovary were excised from the infundibulopelvic ligament and superior pedicle. The L ovary and fallopian tube were placed at the anterior cul de sac. The 5 mm suprapubic trocar was removed and a bladeless 10-12 mm bladeless trochar was then placed through the suprapubic incision into the peritoneal cavity. This was done under direct laparoscopic visualization. The detached fallopian tubes and ovaries were brought through the 10-12 mm trochar and set aside for later pathology review. Excellent hemostasis was noted by visualization of the pelvis, uterus and excision sites. Photos were taken of the uterus and and of the RUQ and liver edge. At this point the the procedure was terminated. The pneumoperitoneum was reduced and the instruments and trocars were removed from he the anterior abdominal wall skin. The skin incisions were closed with 4-0 Monocryl in a subcuticular fashion. Dermabond and OpSites were applied to the skin. The sponge stick was removed from the vagina. The patient was returned to dorsal supine position. She was awakened from general anesthesia. She was transferred to the recovery room bed in stable condition after tolerating the procedure well. Sponge, lap, needle and instrument counts were correct x two. Medications given preop and intraoperatively included: 8 cc of 1/2 % Marcaine with epinephrine --used as a subcutaneous block and Toradol 30 mg IV x one. For a complete listing of medications given preop and intraop , please see the anesthesia record.
--- NOTE | 2018-07-10 | FALS_PTH ---
PATIENT: BRUNILDA GAMING LOC: [facility] U#:[id number] AGE/SX: 53/F ROOM: RE07/09/[address]: Dr. Carey Yen MD : 1965 BED: DIS: 07/09/2018 SPEC #: [id number] RECD: 07/10/18 13:03 STATUS: ELEAZAR MELECIO #: [id number] SYLVIA: 07/10/18 00:[address]: Carey Yen DEPT: SURGICAL PATHOLOGY RECD BY: Wenceslao Graham ENTERED: 07/10/18 13:03 SP TYPE: FALL TUBES OTHR DR: Dr. Kevin Evans MD Tissues: Fallopian tube Procedures: Surgery Specimen Level IV HEADER OPERATION: Laparoscopic salpingo-oophorectomy PRE-OP DIAGNOSIS: Malignant neoplasm of breast cancer TISSUE SUBMITTED: Bilateral fallopian tubes MICROSCOPIC DIAGNOSIS Bilateral fallopian tubes and ovaries, bilateral salpingo-oophorectomy: Bilateral fallopian tubes - no pathologic diagnosis. Bilateral ovaries - no pathologic diagnosis. ESTUARDO:laine 07/11/18 MICROSCOPIC DESCRIPTION Slides are reviewed. GROSS DESCRIPTION Received is one container labeled with the patient's name and designated bilateral fallopian tubes. The specimen consists of bilateral fallopian tubes and adjacent ovaries. The fallopian tubes and ovaries are not identified as right or left. One of the fallopian tubes measure 4 cm in length and 0.5 cm in diameter. No tubo-ovarian adhesions are identified. The fimbrial end is present. The adjacent ovary measures 2 x 1.5 x 1 cm. Sections of the fallopian tube and ovary do not reveal any mass lesion. The second fallopian tube measures 5 cm in length and up to 0.5 cm in diameter. The fimbrial end is identified. No tubo-ovarian adhesions are noted. The adjacent ovary measures 2 x 1.5 x 0.7 cm. Sections of the fallopian tube and ovary do not reveal any mass lesion. Storekeeper Steward sections are submitted in six cassettes as follows: 1 ? fallopian tube, 2 & 3 ? adjacent ovary, entirely submitted, 4 ? second fallopian tube, 5 & 6 ? second adjacent ovary, entire submitted. / ESTUARDO:laine 07/10/18 TC:4 CPT: 06942 x2
== END 2018-07-09 14:43 | disposition home or self-care (01) ==
LOC: SDC 10:17 → AC 10:17
PROVIDERS: Family Provider Family Medicine; PCP Family Medicine; Visit Provider Obstetrics & Gynecology
PROC: (CPT 58661; principal; 2018-07-09 11:45)
DX: Z40.02 Encounter for prophylactic removal of ovary(s) (principal); Z85.3 Personal history of malignant neoplasm of breast; J45.909 Unspecified asthma, uncomplicated; E03.9 Hypothyroidism, unspecified; D64.9 Anemia, unspecified; Z79.899 Other long term (current) drug therapy
CPT/HCPCS: 58661; 71046; 85610; 85730; 88302; 88305; 93005; J7120; A4216; J2405

== ENCOUNTER → 2018-07-17 10:15 | Outpatient (CLI) | payer OTHER, SELFPAY ==
[2018-03-19 08:56] VITALS: BMI 21.2
--- NOTE | 2018-07-17 10:16 | ECHODONC_ITS ---
Reason For Study: Abn.EKG Procedure This was a 2D Doppler, Color Flow transthoracic echocardiogram. Myocardial strain analysis was performed in this exam to aid in the assessment of cardiac function. Exam performed in department. Left Ventricle Normal LV size. Left ventricular systolic function is lower limits of normal. The estimated ejection fraction is 53 %. The 3D full volume ejection fraction is 50 %. The global longitudinal strain is normal. The global longitudinal strain = -18.5 % (normal). Stage 1 diastolic dysfunction. No regional wall motion abnormalities noted. Right Ventricle Normal RV size. Normal systolic function. Atria Normal left atrium. Normal right atrium. Mitral Valve Normal mitral valve. Tricuspid Valve Normal tricuspid valve. Mild tricuspid valve insufficiency. Pulmonary artery systolic pressure is 23 mmHg. Aortic Valve Normal aortic valve. Trisinus/trileaflet aortic valve. Pulmonic Valve Normal pulmonic valve. Great Vessels Normal aortic root. The pulmonary artery is normal size. Normal inferior vena cava. Pericardium/Pleural No pericardial effusion. MMode/2D Measurements & Calculations LVIDd: 4.6 cm IVSd: 0.92 cm Ao root diam: 3.2 cm LVIDs: 3.2 cm LVPWd: 0.89 cm LA dimension: 2.8 cm RVDd: 2.7 cm FS: 30.0 % LAV(MOD-bp): 47.1 ml LA A4 area: 16.2 cm2 RA A4 area: 12.6 cm2 LAV(MOD-bp) Indexed: 27.8 ml/m2 LAV(MOD-sp2): 38.3 ml LAV(MOD-sp4): 46.7 ml Doppler Measurements & Calculations MV E max donald: 51.0 cm/sec Lat Peak E' Donald: 10.4 cm/sec Med Peak E' Donald: 6.2 cm/sec MV A max donald: 75.9 cm/sec E/E' lat: 4.9 E/E' med: 8.2 MV E/A: 0.67 Ao V2 max: 119.1 cm/sec LV V1 max: 97.7 cm/sec PA V2 max: 80.1 cm/sec Ao max P.7 mmHg LV V1 max P.8 mmHg TR max donald: 224.2 cm/sec TR max P.1 mmHg Interpretation Summary Normal LV size. Left ventricular systolic function is lower limits of normal. The estimated ejection fraction is 53 %. The global longitudinal strain = -18.5 % (normal). The global longitudinal strain is normal. Stage 1 diastolic dysfunction. Compared to prior study, there is no significant change. Ordering Physician: Rustam Chavarria Referring Physician: Kevin Evans Performed By: Ysabel Haas RDCS
== END ==
PROVIDERS: Family Provider Family Medicine; PCP Family Medicine; Visit Provider Internal Medicine Cardiovascular Disease
DX: R93.1 Abnormal findings on diagnostic imaging of heart and coronary circulation (principal)
CPT/HCPCS: 0399T; 93306

== ENCOUNTER → 2018-08-22 17:40 | Outpatient (CLI) | payer OTHER, SELFPAY ==
[2018-03-19 08:56] VITALS: BMI 21.2
--- NOTE | 2018-08-22 17:46 | CT_ITS ---
STUDY: CT ABDOMEN AND PELVIS WITH CONTRAST REASON FOR EXAM: Female, 53 years old. BREAST CA, RT SIDED LUMPECTOMY, 4 LYMPH NODES REMOVED, BONE [id number], MUSCLE PAIN RADIATION DOSAGE (If Supplied By Facility): CTDIvol = ( 7.74 ) mGy, DLP = ( 335.02 ) mGycm TECHNIQUE: Transaxial images were obtained from the dome of the diaphragm to the symphysis pubis without oral contrast. 100 ml of Isovue 300 contrast was administered. Sagittal and coronal images were reconstructed. # of Images: 358 Individualized dose optimization techniques were used for this CT. COMPARISON: None. FINDINGS: The visualized lung bases are unremarkable. The visualized portions of the heart are within normal limits. Normal liver. There are surgical clips in the gallbladder fossa consistent with a prior cholecystectomy. Normal spleen. Normal pancreas. Normal bilateral adrenal glands. Normal right kidney. Normal left kidney. Normal visualized stomach. Normal small intestine. Normal colon. There is non-visualization of the appendix. Normal abdominal aorta. Normal inferior vena cava. Normal retroperitoneum. Normal urinary bladder. There is a left-sided inguinal hernia containing adipose tissue. Normal osseous structures. CT/Abdomen/Pelvis WITH Contrast IMPRESSION: No evidence of metastatic lesions in the abdomen and pelvis. There is a left-sided inguinal hernia containing adipose tissue. Electronically Signed: Saen Oden MD at 16:32 EDT Tel , Service support ,
--- NOTE | 2018-08-22 17:51 | CT_ITS ---
STUDY: CT CHEST WITH CONTRAST REASON FOR EXAM: Female, 53 years old. BREAST CA, RT SIDED LUMPECTOMY, 4 LYMPH NODES REMOVED, BONE FGOW-[id number]-[id number]-FINGERS, MUSCLE PAIN RADIATION DOSAGE (If Supplied By Facility): CTDIvol = ( 10.07 ) mGy, DLP = ( 185.64 ) mGycm TECHNIQUE: Transaxial imaging was performed following intravenous administration of 100 ml of Isovue 300 contrast material. # of Images: 726 Individualized dose optimization techniques were used for this CT. COMPARISON: None. FINDINGS: There is scarring in the anterior segment of right lung upper lobe and in the anterior aspect of the right middle lobe. There is no demonstrated pleural abnormality. Normal heart and pericardium. Normal mediastinum. Normal hilar regions. Normal enhanced pulmonary arteries. Normal aorta arch and descending thoracic aorta. Normal osseous structures. There is no demonstrated abnormality of the visualized upper abdomen. CT/Chest WITH Contrast IMPRESSION: No evidence of metastatic lesions in the chest. Electronically Signed: Sean Oden MD at 16:35 EDT Tel , Service support ,
== END ==
PROVIDERS: Family Provider Family Medicine; PCP Family Medicine; Referring Provider Internal Medicine Medical Oncology; Visit Provider Internal Medicine Medical Oncology
DX: C50.311 Malignant neoplasm of lower-inner quadrant of right female breast (principal); R52 Pain, unspecified; K40.90 Unilateral inguinal hernia, without obstruction or gangrene, not specified as recurrent
CPT/HCPCS: 71260; 74177; Q9967

== ENCOUNTER 2018-08-26 06:52 | Day surgery (SDC) | payer OTHER, SELFPAY ==
[2018-03-19 08:56] VITALS: BMI 21.2
[2018-08-26 07:13] VITALS: BP 89/57; PULSE 77; RESP 16; TEMP 37; O2SAT 96; BMI 20.5
--- NOTE | 2018-08-26 08:22 | PCM.HP.STD ---
Problem List (1) Screening for colorectal cancer Status: Acute History of Present Illness Date of Admission: 08/26/18 The patient is a 53 year old F who presents for screening colonoscopy. Past Medical History Past Medical History (Chronic Problems): Chronic Problems (Last Reviewed 08/14/18 @ 10:35 by Margot Flores) Malignant neoplasm of lower-inner quadrant of right female breast (Chronic) Medical History: Medical History (Last Reviewed 08/26/18 @ 08:23 by Shahzad Mckay MD) Malignant neoplasm of lower-inner quadrant of right female breast (Chronic) C50.311 Asthma J45.909 Breast cancer C50.919 Environmental allergies Z91.09 Hypothyroid E03.9 right breast staph infection 1984 Allergies oxycodone [From Percocet] Allergy (Mild, Verified 08/23/18 08:41) Hives environmental Allergy (Mild, Uncoded 08/23/18 08:41) Unknown Home Medications: Ambulatory Orders Medication Instructions Recorded albuterol sulfate HFA 90 1 puff INHALATION PRN PRN 12/14/17 mcg/actuation aerosol inhaler fluticasone 100 mcg-salmeterol 50 1 puff INHALATION BID 12/14/17 mcg/dose blistr powdr for inhalation fluticasone 50 mcg/actuation nasal 50 mcg INTRANASAL QDAY PRN 12/14/17 spray,suspension levothyroxine 100 mcg capsule 100 mcg PO DAILY 12/14/17 Vitamin B Complex [Balanced B-50] 1 tab PO DAILY 03/06/18 Ferrous Gluconate 325 mg PO BID 05/13/18 Calcium 600-Vit D3 500 Softgel 2 tab PO BID 07/17/18 Tamoxifen Citrate [Nolvadex] 20 mg PO DAILY #90 tablet 08/14/18 Surgical History: Surgical History (Last Reviewed 08/26/18 @ 08:23 by Shahzad Mckay MD) History of laparoscopic cholecystectomy Z98.890, Z90.49 PORT PLACEMENT Onset Date: 02/04/18 FEBRUARY 04 2018 H/O bilateral salpingo-oophorectomy Onset Date: 07/09/18 Z90.79, Z90.722 Hx of colonoscopy Z98.890 2011-repeat in 10 yrs Status post right breast lumpectomy Z98.890 with SLN dissection 01/2018 Smoking Status: Never smoker - *Family History Maternal Family History: Family History (Last Reviewed 08/14/18 @ 10:35 by Margot Flores) Mother Hypertension CVA (cerebral vascular accident) Lupus Father Colon cancer Sister Colon cancer Parkinson disease History Items: No pertinent history Review of Systems Cardiovascular: Denies: Chest Pain, Chest Pressure, Chest Tightness, Palpitations Respiratory: Denies: Cough, Hemoptysis, Shortness of breath at rest, Shortness of breath upon exertion, Wheezing Gastrointestinal: Denies: Abdominal Pain, Constipation, Diarrhea, Hematemesis, Nausea, Melena, Vomiting VTE Information - Inpt Only VTE Present on Admission: No VTE Mechan Device Prophylaxis: None VTE Pharm Prophylaxis ordered?: No Reason prophylaxis not ordered:: Treatment Not Indicated Patient Problems: Active and Suspected Problems (Last Reviewed 08/14/18 @ 10:35 by Margot Flores) Screening for colorectal cancer (Acute) - Physical Exam General: Alert, Oriented x3 Lungs: Clear to auscultation Cardiovascular: Regular rate, Regular Rhythm, No murmurs Abdomen: Bowel Sounds Present, Soft, Non Tender, Non-Distended Vital Signs Temp Pulse Resp BP Pulse Ox 98.6 F 77 16 89/57 L 96 08/26/18 07:13 08/26/18 07:13 08/26/18 07:13 08/26/18 07:13 08/26/18 07:13 Oxygen Delivery Method Room Air Weight: 126 lb 12.253 oz Body Mass Index (BMI) 20.5 Assessment/Plan All Active Problems (Last Reviewed 08/14/18 @ 10:35 by Margot Flores) Screening for colorectal cancer (Acute) Chemotherapy management, encounter for (Acute) Osteopenia (Acute) Myalgia (Acute) Abnormal echocardiography (Acute) Plan will be to perform a colonoscopy.
[2018-08-26 08:24] VITALS: BP 84/67; BP 89/57; PULSE 100; RESP 18; TEMP 36.3; O2SAT 96
--- NOTE | 2018-08-26 08:26 | OP.ENDO_ITS ---
Patient Name: Lorie Jade Procedure Date: 08/26/2018 8:00 AM Date of : 1965 Age: 53 Procedure: Colonoscopy Indications: Screening for colorectal malignant neoplasm Providers: Shahzad Mckay MD Referring MD: Shahzad Mckay MD Medicines: See the Anesthesia note for documentation of the administered medications Patient Profile: Last Colonoscopy: 8 years ago. Complications: No immediate complications. Procedure: Pre-Anesthesia Assessment: - Prior to the procedure, a History and Physical was performed, and patient medications and allergies were reviewed. The patient's tolerance of previous anesthesia was also reviewed. The risks and benefits of the procedure and the sedation options and risks were discussed with the patient. All questions were answered, and informed consent was obtained. Prior Anticoagulants: The patient has taken no previous anticoagulant or antiplatelet agents. ASA Grade Assessment: III - A patient with severe systemic disease. After reviewing the risks and benefits, the patient was deemed in satisfactory condition to undergo the procedure. After I obtained informed consent, the scope was passed under direct vision. Throughout the procedure, the patient's blood pressure, pulse, and oxygen saturations were monitored continuously. The Colonoscope was introduced through the anus and advanced to the ileocecal valve. The colonoscopy was performed without difficulty. The patient tolerated the procedure well. The quality of the bowel preparation was good. Scope In: 8:07:48 AM Scope Withdrawal Time 0 hours 6 minutes 7 seconds Scope Out: 8:20:07 AM Total Procedure Duration Time 0 hours 12 minutes 19 seconds Findings: Hemorrhoids were found on perianal exam. Non-bleeding internal hemorrhoids were found during retroflexion. The hemorrhoids were moderate. The exam was otherwise without abnormality. Impression: - Hemorrhoids found on perianal exam. - Non-bleeding internal hemorrhoids. - The examination was otherwise normal. - No specimens collected. Recommendation: - Discharge patient to home. - Resume previous diet. - Continue present medications. - Repeat colonoscopy in 10 years for screening purposes. - Return to primary care physician PRN. Procedure Code(s): --- Professional --- G0121, Colorectal cancer screening; colonoscopy on individual not meeting criteria for high risk Diagnosis Code(s): --- Professional --- Z12.11, Encounter for screening for malignant neoplasm of colon K64.8, Other hemorrhoids CPT copyright 2017 [employer]. All rights reserved. The codes documented in this report are preliminary and upon information coder review may be revised to meet current compliance requirements. MD Shahzad Zeng MD 08/26/2018 8:26:10 AM This report has been signed electronically. Number of Addenda: 0 Note Initiated On: 08/26/2018 8:00 AM
[2018-08-26 08:28] VITALS: BP 86/51; BP 89/57; PULSE 73; RESP 18; O2SAT 97
[2018-08-26 08:33] VITALS: BP 85/48; BP 89/57; PULSE 72; RESP 18; O2SAT 98
[2018-08-26 08:39] VITALS: BP 86/46; BP 89/57; RESP 16; TEMP 36.6; O2SAT 97
[2018-08-26 08:49] VITALS: BP 89/57
== END 2018-08-26 09:02 | disposition home or self-care (01) ==
LOC: EN 06:53 → AC 06:54
PROVIDERS: Family Provider Family Medicine; PCP Family Medicine; Referring Provider Surgery; Visit Provider Surgery
PROC: 0DJD8ZZ Inspection of Lower Intestinal Tract, Via Natural or Artificial Opening Endoscopic (ICD-10-PCS; CPT 45378; principal; 2018-08-26 08:10)
DX: Z12.11 Encounter for screening for malignant neoplasm of colon (principal); K64.8 Other hemorrhoids; D64.9 Anemia, unspecified; C50.311 Malignant neoplasm of lower-inner quadrant of right female breast; J45.909 Unspecified asthma, uncomplicated; E03.9 Hypothyroidism, unspecified; Z79.899 Other long term (current) drug therapy; Z80.0 Family history of malignant neoplasm of digestive organs
CPT/HCPCS: 45378; J7120

== ENCOUNTER → 2018-08-29 07:21 | Outpatient (CLI) | payer OTHER, SELFPAY ==
[2018-03-19 08:56] VITALS: BMI 21.2
--- NOTE | 2018-08-29 07:23 | NM_ITS ---
CLINICAL: 53-year-old female with reported history of primary breast carcinoma. WHOLE BODY 99m Tc MDP RADIONUCLIDE BONE SCINTIGRAPHY COMPARISON: CT of the chest, abdomen and pelvis reports 08/22/2018 FINDINGS: Following the intravenous administration of 25.4 mCi of 99m Tc MDP, whole body bone images reveal: 1. Increased radiopharmaceutical concentration is identified in the right posterior 10th-11th, right anterolateral fifth, sixth ribs. 2. Enhanced tracer concentration appears evident in the mid cervical spine posteriorly on the left and right, posterior midline sacrum, sternoclavicular compartment of the right shoulder, acromioclavicular components of both shoulders, right and left wrist articulations, patellofemoral compartments of both knees, lateral compartment of the right-left ankles. 3. The remaining skeletal structures are scintigraphically unremarkable with normal-appearing renal images and urinary bladder activity identified. An increase in uptake is demonstrated in the bilateral maxillae most consistent with periostitis. NM/Bone Scan Whole Body IMPRESSION: 1. The increase in radiopharmaceutical concentration identified in the right posterior and anterolateral ribs likely represents trauma-fracture. Plain film radiography correlation may be of benefit for further evaluation. 2. Degenerative arthritis is otherwise defined in the cervical spine, sacrum, bilateral shoulders, right and left wrists, knees bilaterally, both ankle articulations. Electronically Signed: Florin Reynolds DO at 22:55 EDT Tel , Service support ,
== END ==
PROVIDERS: Family Provider Family Medicine; PCP Family Medicine; Referring Provider Internal Medicine Medical Oncology; Visit Provider Internal Medicine Medical Oncology
DX: C50.311 Malignant neoplasm of lower-inner quadrant of right female breast (principal); R52 Pain, unspecified
CPT/HCPCS: 78306

== ENCOUNTER → 2018-10-30 11:26 | Outpatient (CLI) | payer OTHER, SELFPAY ==
[2018-10-08 08:00] VITALS: BMI 20.7
[2018-10-08 11:31] VITALS: BMI 19.5
[2018-11-03 13:20] LABS: HPV Reflexed? NOT INDICATED
== END ==
PROVIDERS: Visit Provider Obstetrics & Gynecology
DX: Z12.4 Encounter for screening for malignant neoplasm of cervix (principal)
CPT/HCPCS: 88175; G0145

== ENCOUNTER → 2019-01-06 07:00 | Outpatient (CLI) | payer OTHER, SELFPAY ==
[2018-10-08 08:00] VITALS: BMI 20.7
[2018-10-08 11:31] VITALS: BMI 19.5
--- NOTE | 2019-01-06 07:07 | BI_ITS ---
MAMMOGRAPHY - BILATERAL SCREENING REASON FOR EXAM: Female, 53 years old. Routine annual screening examination. PERTINENT HISTORY: Personal history of breast cancer. Prior right lumpectomy with chemotherapy and radiation therapy. TECHNIQUE: Digital bilateral breast misael (3D mammographic acquisition) in the CC and MLO projections. 2-D mediolateral oblique (MLO) and craniocaudad (CC) views of both breasts were obtained. CAD: Full Field Digital Mammography with Computer Added Detection was performed. COMPARISON: Comparison is made with prior mammogram dated November 30, 2017 and October 06, 2016. FINDINGS: Breast Composition: The breasts are extremely dense, which lowers the sensitivity of mammography. Since prior examination, the patient underwent resection of the nodular density in the inferior medial aspect of the right breast. There is evidence of a postoperative architectural distortion with skin thickening and deformity of the breast. A tissue clip marker is once again seen in the deep upper medial aspect of the right breast. No other significant abnormalities are identified. BI/SCREENING MAMM (CAD), BILAT IMPRESSION: Status post right lumpectomy with resultant breast deformity and skin thickening as described. Yearly follow-up mammogram recommended. (A) ASSESSMENT CATEGORY: BIRADS Category 0: Incomplete. Need additional imaging evaluation. A letter regarding these results will be sent to the patient by the facility within 30 days. Approximately 10% of breast cancers are not detected by mammography. A normal mammogram should not delay biopsy of a clinically suspicious abnormality. [id number] Electronically Signed: Josef Wrigth, at 9:25 EST , Service support ,
== END ==
PROVIDERS: Family Provider Family Medicine; PCP Family Medicine; Visit Provider Student in an Organized Health Care Education/Training Program
DX: Z12.31 Encounter for screening mammogram for malignant neoplasm of breast (principal); Z85.3 Personal history of malignant neoplasm of breast
CPT/HCPCS: 77063; 77067

== ENCOUNTER → 2019-06-05 12:00 | Outpatient (CLI) | payer OTHER, SELFPAY ==
[2018-10-08 08:00] VITALS: BMI 20.7
[2019-03-18 14:53] VITALS: BMI 20.7
--- NOTE | 2019-06-05 | EMB_PTH ---
PATIENT: BRUNILDA GAMING LOC: [facility] U#:[id number] AGE/SX: 60/F ROOM: RE06/05/[address]: Dr. Carey Yen MD : 1965 BED: DIS: SPEC #: [id number] RECD: 06/05/19 14:25 STATUS: ELEAZAR MELECIO #: [id number] SYLVIA: 06/05/19 00:[address]: Carey Yen DEPT: SURGICAL PATHOLOGY RECD BY: Wenceslao Graham ENTERED: 06/05/19 14:26 SP TYPE: ENDOM BX/C FRANNIE DR: Dr. Kevin Evans MD Tissues: Endometrium, NOS Procedures: Surgery Specimen Level IV HEADER OPERATION: Endometrial biopsy PRE-OP DIAGNOSIS: Postmenopausal bleeding TISSUE SUBMITTED: Endometrial biopsy MICROSCOPIC DIAGNOSIS Endometrial biopsy: Proliferative endometrium. SJ:laine 06/06/19 MICROSCOPIC DESCRIPTION Slides are reviewed. GROSS DESCRIPTION Received in fixative is one container labeled with the patient's name and designated EM biopsy. The specimen consists of multiple fragments of hemorrhagic soft tissue that in aggregate measure 2.5 x 0.5 x 0.1 cm. The specimen is totally submitted in one cassette. / SJ:laine 06/05/19 TC:4 CPT: 23743
== END ==
PROVIDERS: Family Provider Family Medicine; PCP Family Medicine; Referring Provider Obstetrics & Gynecology; Visit Provider Obstetrics & Gynecology
DX: N95.0 Postmenopausal bleeding (principal)
CPT/HCPCS: 88305

== ENCOUNTER → 2019-10-31 17:12 | Outpatient (CLI) | payer OTHER, SELFPAY ==
[2018-10-08 08:00] VITALS: BMI 20.7
[2019-09-16 15:02] VITALS: BMI 21.4
[2019-11-04 03:07] LABS: Age Gdln ACOG Testing 30-65 (.)
[2019-11-04 15:45] LABS: HPV APTIMA, High Risk Negative (Negative); HPV Reflexed? YES, CHARGE PATIENT
== END ==
PROVIDERS: Family Provider Family Medicine; PCP Family Medicine; Referring Provider Advanced Practice Midwife; Visit Provider Advanced Practice Midwife
DX: Z12.4 Encounter for screening for malignant neoplasm of cervix (principal)
CPT/HCPCS: 87624; 88175; G0145

== ENCOUNTER → 2019-11-19 08:03 | Outpatient (CLI) | payer OTHER, SELFPAY ==
[2018-10-08 08:00] VITALS: BMI 20.7
[2019-09-16 15:02] VITALS: BMI 21.4
--- NOTE | 2019-11-19 15:00 | EMB_PTH ---
PATIENT: BRUNILDA GAMING LOC: [facility] U#:[id number] AGE/SX: 60/F ROOM: RE11/19/[address]: Mary Anne Dias CNM : 1965 BED: DIS: SPEC #: [id number] RECD: 11/19/19 17:50 STATUS: ELEAZAR REHalina #: [id number] SYLVIA: 11/19/19 15:[address]: Mary Anne Dias DEPT: SURGICAL PATHOLOGY RECD BY: Christopher Miles ENTERED: 11/20/19 10:34 SP TYPE: ENDOM BX/C FRANNIE DR: Dr. Kevin Evans MD Tissues: Endometrium, NOS Procedures: Surgery Specimen Level IV HEADER OPERATION: Endometrial biopsy PRE-OP DIAGNOSIS: Postmenopausal bleeding TISSUE SUBMITTED: Endometrial biopsy MICROSCOPIC DIAGNOSIS Endometrium, biopsy: Scant strips of benign superficial endometrium. Scant fragments of benign superficial endocervix and detached fragments of benign squamous epithelium. See comment. AM:laine 11/21/19 COMMENT The specimen primarily consists of clotted blood. Clinical correlation is suggested. Reference is made to the patient's previous endometrial biopsy from 06/06/19 ([id number]) in which proliferative endometrium was identified. MICROSCOPIC DESCRIPTION Slides are reviewed. GROSS DESCRIPTION Received is one container labeled with the patient's name and not further designated. The specimen consists of multiple fragments of hemorrhagic mucoid tissue that in aggregate measure 2.5 x 1.5 x 0.1 cm. The specimen is totally submitted in one cassette. / SJ:laine 11/20/19 TC:5 CPT: 57767
== END ==
PROVIDERS: PCP Family Medicine; Referring Provider Advanced Practice Midwife; Visit Provider Advanced Practice Midwife
DX: N95.0 Postmenopausal bleeding (principal)
CPT/HCPCS: 88305

== ENCOUNTER 2020-01-05 10:01 | Day surgery (SDC) | payer OTHER, SELFPAY ==
[2018-10-08 08:00] VITALS: BMI 20.7
[2019-09-16 15:02] VITALS: BMI 21.4
[2019-12-31 11:27] LABS: Hematocrit 40.4 % (37-47); Hemoglobin 13.1 g/dL (12.0-15.0); Mean Corp Hgb Conc 32.4 g/dL (32-36); Mean Corpuscular Hgb 31.3 pg (27.0-32.0); Mean Corpuscular Volume 96.4 fL (81-99); Mean Platelet Vol. 11.3 fl (6.2-12.0); Platelet Count 156 K/mm3 (150-450); RBC Distribution Width CV 13.1 % (11.6-14.6); RBC Distribution Width SD 46.7 fl (35.1-43.9); Red Blood Count 4.19 M/mm3 (4.2-5.4); White Blood Count 3.4 K/mm3 (4.4-11.0)
[2019-12-31 11:31] LABS: Prothrombin Time (Protime)PT. 12.9 SECONDS (11.7-14.9)
[2019-12-31 11:32] LABS: Partial Thromboplast Time 22.8 Seconds (24.1-36.2)
[2019-12-31 11:45] LABS: AST(SGOT) 27 U/L (15-37); Alanine Aminotransfer ALT/SGPT 35 U/L (13-56); Albumin, Serum 3.7 g/dL (3.2-5.0); Alkaline Phosphatase 55 U/L (45-117); Anion Gap 2 (5-15); BUN 14 mg/dL (7-18); BUN/Creat Ratio 19.5 RATIO (10-20); Calcium,Total 9.1 mg/dL (8.5-10.1); Chloride 110 mmol/L (98-107); Creatinine, Serum 0.72 mg/dL (0.55-1.02); EST Glomerular Filtration Rate 90 mL/min (>60); Est Glom Filt Rate - Afr Amer 109 mL/min (>60); Globulin 3.7 g/dL (2.2-4.2); Glucose 105 mg/dL (74-106); Protein, Total 7.4 g/dL (6.4-8.2); Sodium Level 141 mmol/L (136-145)
--- NOTE | 2020-01-04 10:55 | HP.PCM_ITS ---
History and Physical Date of Admission: 01/05/20 Surgical History and Physical Lorie Jade, a 54 year old female 3 0 0 0 3, presents for D and C and hysteroscopy on January 05, 2020 at 8:35. 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 Hx Invasive Ductal Ca and S/P Lumpectomy R Breast 01/2018. BSO 06/2018. ON Tamoxifen. 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 EMBx inconclusive and u/s with thickened lining; plan to proceed with D and C and H/S. MEDICATIONS HISTORY: Patient is also takin. Advair Diskus 100-50 mcg/dose Disk with Device 2. albuterol sulfate 90 mcg/actuation HFA Aerosol Inhaler, PRN 3. Flonase 50 mcg/actuation Barton, Suspension 4. tamoxifen 20 mg tablet, daily 5. levothyroxine 125 mcg tablet, One pill by mouth once a day ALLERGIES: NKA, No Known Drug Allergies, Percocet and Hives and/or rash Infections - Chicken pox Illnesses - asthma, hypothyroid, GERD, h/o pancreatitis and gallstones Accidents - no injuries of consequence Hospitalizations - Childbirth and see surgery Review of Systems: GENERAL - Denies fever, or chills SKIN - Denies skin changes EYES - Denies visual changes EARS - Denies difficulty hearing NOSE - Denies nasal congestion or bleeding MOUTH - Denies sore throat or difficulty swallowing NECK - Denies pain or swelling RESPIRATORY - Denies shortness of breath or wheezing CARDIOVASCULAR - Denies palpitations or chest pain GASTROINTESTINAL - Denies nausea, vomiting, diarrhea, constipation GENITOURINARY - Denies dysuria, frequency of urination, incontinence of urine MUSCULOSKELETAL - Denies joint or muscle pain NEUROLOGICAL - Denies localized numbness or weakness PSYCHIATRIC - Denies depression or anxiety ENDOCRINE - Denies heat or cold intolerance, weight loss or gain HEMATO-IMMUNOLOGIC - Denies excesive bleeding with cuts SOCIAL HISTORY: Alcohol Use - drinks occasionally Smoking - denies smoking Diet - no special diet Lifestyle - moderate stress lifestyle and working on divorce Exercise - regular Seat Belt Use - always [place]er - [employer] [place] Description - Health Educator Illicit Drug Use - denies use of street drugs Sexual Activity - Hours Worked - 40 hours per week Children Name(s) - [place] Olivia Control - condoms and postmenopausal FAMILY HISTORY: Mother: lupus, Stroke and Hypertension. Father: Colon Cancer. Sister: Colon Cancer. MENSTRUAL HISTORY: LMP Known?- Postmenopausal, LMP - 03/05/18, Age Onset Menarche - 14 PAST PREGNANCIES: Total Pregnancies - 3; Full Term Pregnancies - 3; Premature - 0; Abortions, Induced - 0; Abortions, Spontaneous - 0; Ectopics - 0; Multiple Births - 0; Living Children - 3 SURGICAL HISTORY: 1. 1998 colonoscopy and endoscopy 2. 1995 D and C 3. 1998 cholecystectomy 4. Right Breast Biopsy, 2005 5. 07/09/2018 Laparoscopic bilateral salpingo-oophorectomy ; Carey Yen M.D. - personal hx of breast cancer, oncologist recommended BSO 6. 07/09/2018 Lap BSO ; Carey Yen M.D. 7. 01/21/2018 right breast lumpectomy PHYSICAL EXAM BP- 102/68 Sitting, Left arm, regular cuff Weight- 132.50412 lbs Height- 66.5 inch BMI:21.03 CONSTITUTIONAL - NAD, well nourished, and well developed SKIN - No rash, lesions, or ulcers HEENT - Normocephalic, PERRLA, EOMI NECK - No nodes, no nuchal rigidity and thyroid normal size and texture LYMPH NODES - Palpation of lymph nodes in neck and groins within normal limits LUNGS - CTA x2 without wheezes, crackles or rales CARDIAC - Regular rate and rhythm without rubs, murmurs, or gallops BREAST - No dominant masses, no tenderness, no axillary adenopathy, no nipple discharge, no skin changes ABDOMEN - Without hepatosplenomegaly, distention, masses, rebound, or guarding; normal bowel sounds; no hernias EXTREMITIES - No edema or calf tenderness NEUROLOGICAL - Cranial nerves II-XII grossly intact PSYCHIATRIC - A and O to time, place, person, mood and affect External Genital Vagina - non-tender without lesions Urethra/Urethral Meatus - non-tender Bladder - non-tender Vagina - Vaginal linton pink and moist; loss of rugae and atrophy noted Cervix - pink, most, friable; cervical motion tenderness noted, likely r/t menopausal changes Uterus - 5-6 cm in size, mobile and nontender Adnexa - clear without masses or tenderness ASSESSMENT/PLAN: Postmenopausal Bleeding and Unspecified Adverse Effect Of Drug Or Medicament Infrequent light spotting noted. EMBx inconclusive and thickened EM on u/s. Plan to proceed with D and C and H/S. Discussed RBAs and all questions answered.
--- NOTE | 2020-01-05 | EMB_PTH ---
PATIENT: BRUNILDA GAMING LOC: [facility] U#:[id number] AGE/SX: 54/F ROOM: RE01/05/[address]: Dr. Duong Billy MD : 1965 BED: DIS: 01/05/2020 SPEC #: [id number] RECD: 01/05/20 13:19 STATUS: ELEAZAR REHalina #: [id number] SYLVIA: 01/05/20 00:[address]: Duong Billy DEPT: SURGICAL PATHOLOGY RECD BY: Wenceslao Graham ENTERED: 01/05/20 13:19 SP TYPE: ENDOM BX/C FRANNIE DR: Dr. Kevin Evans MD Tissues: A - Endometrium, NOS B - Endocervical Procedures: Surgery Specimen Level IV HEADER OPERATION: Hysteroscopy, D & C PRE-OP DIAGNOSIS: Postmenopausal bleeding TISSUE SUBMITTED: A - Endometrial curettings, B - Endocervical curettings MICROSCOPIC DIAGNOSIS A. Endometrial curettings: Proliferative endometrium. B. Endocervical curettings: Fragments of benign endocervical mucosa with chronic inflammation, blood and mucous. ESTUARDO:laine 01/06/20 COMMENT Please make reference to previous specimen ([id number]) endometrial biopsy with diagnosis of proliferative endometrium and ([id number]) endometrium, biopsy with diagnosis of scant strips of benign superficial endometrium and scant fragments of benign superficial endocervix and detached fragments of benign squamous epithelium. MICROSCOPIC DESCRIPTION Slides are reviewed. GROSS DESCRIPTION A - Received in fixative is one container labeled with the patient's name and designated endometrial curettings. The specimen consists of multiple fragments of hemorrhagic soft tissue that in aggregate measure 2.5 x 1.2 x 0.1 cm. The specimen is totally submitted in one cassette. B - Received in fixative is one container labeled with the patient's name and designated endocervical curettings. The specimen consists of multiple fragments of hemorrhagic mucoid tissue that in aggregate measure 1.5 x 0.6 x 0.1 cm. The specimen is totally submitted in one cassette. / SJ:laine 01/05/20 TC:3 CPT: 19418 x2
[2020-01-05 10:25] VITALS: BP 96/47; PULSE 66; RESP 14; TEMP 36.9; O2SAT 100; BMI 20.8
[2020-01-05] MEDS: Lactated Ringers 1,000 ML 100 ML IV (10:52)
--- NOTE | 2020-01-05 11:53 | PCM.OPRPT ---
Report of Operation Date of Procedure: 01/05/20 Pre-Operative Diagnosis: Postmenopausal Bleeding Post-Operative Diagnosis: Postmenopausal Bleeding, Vaginal Adhesions Surgery/Procedure Performed:: Diagnostic Hysteroscopy, FractionalDilation and Curettage, Lysis of Vaginal Adhesions Description of Surgical Findings:: 8 cm endometrial cavity without polyps or fibroids present. Adhesions of anterior to posterior vagina taken down sharply from vaginal atrophy. After lysis of vaginal adhesions, cervix which protruded to within 1 to 2 cm of the vaginal introitus which would make laparoscopic-assisted vaginal hysterectomy feasible if this were needed. Type of Anesthesia:: MAC Anesthesiologist: Marino Lombardo Specimen's removed: Endometrial and endocervical curettings Estimated Blood Loss (mL): Minimal Fluids Replaced: Crystalloid Description of Procedure: Surgeon: Duong Billy MD, FACOG Indications: This is a 54 year old patient who has the above diagnosis. The patient has been counseled regarding the risk and indications of this procedure including the possibility of bleeding, infection, and injury to surrounding structures such as bowel bladder. All questions were answered and we consider the patient well-informed. Procedure: The patient was taken to the operating room where after induction of general anesthesia, she was placed in the dorsolithotomy position and prepped and draped in the usual sterile fashion. Attempts were made to lyse the vaginal adhesion by using 0 Vicryl suture but this pulled off the cut ends of the adhesions. However, the lysis sites were noted to be hemostatic almost immediately. Anterior cervix was grasped with the tenaculum and dilated to about 4-5 mm. Endocervical curettings were obtained. A 3 mm hysteroscope was placed in the uterus of the above findings were noted. Cervix was dilated to about 7-8 mm and uterus was gently curetted removing all contents. Hysteroscope was reinserted and all material was noted to be removed. In the course of the procedure approximately 100 cc of saline distending media was used and virtually all of this was recovered. Patient tolerated procedure well was taken to recovery room in satisfactory condition sponge instrument and needle counts were all reportedly correct. Estimated blood loss for the case was minimal. Grafts/Implants Used: None - Complications None - Admit VTE Documentation VTE Present on Admission: Yes VTE Mechan Device Prophylaxis: SCD's
--- NOTE | 2020-01-05 11:55 | DCINST_ITS ---
Discharge Diet: No Restrictions Discharge Activity: Return to Normal Activity, May Shower, May Take a Tub Bath May resume sexual activity in: 2 weeks Call your doctor if you observe: Fever of 101 or Higher, Inability to urinate, Inability to have a bowel movement, Using more than one pad per hour Allergies/Adverse Reactions: Allergies oxycodone [From Percocet] Allergy (Mild, Verified 12/29/19 14:02) Hives environmental Allergy (Mild, Uncoded 12/29/19 14:02) Unknown Medications to take at Discharge albuterol sulfate 90 mcg/actuation aerosol inhaler 1 puff INHALATION PRN PRN 12/14/17 fluticasone 100 mcg-salmeterol 50 mcg/dose blistr powdr for inhalation 1 puff INHALATION BID 12/14/17 fluticasone propionate 50 mcg/actuation nasal spray,suspension 50 mcg INTRANASAL QDAY PRN 12/14/17 levothyroxine 100 mcg capsule 125 mcg PO DAILY 12/14/17 Adult One Daily Multivit Tab 1 tab PO DAILY 05/15/19 Tamoxifen Citrate [Nolvadex] 20 mg PO DAILY 90 Days #90 tab 09/09/19 Primary Care Physician: Kevin Evans MD [Primary Care Provider] - Test Results: Test results from this visit will be discussed in further detail at your follow- up appointment, if applicable. Please Follow Up With: Duong Billy MD When: 2 to 3 weeks
[2020-01-05 12:30] VITALS: BP 89/48; BP 96/47; PULSE 58; RESP 14; TEMP 35.9; O2SAT 96
[2020-01-05 12:35] VITALS: BP 83/49; BP 96/47; PULSE 60; RESP 14; O2SAT 95
[2020-01-05 12:41] VITALS: BP 84/50; BP 96/47; PULSE 61; RESP 14; O2SAT 95
[2020-01-05 12:43] VITALS: BP 86/50; BP 96/47; PULSE 59; RESP 14; TEMP 36.2; O2SAT 94
[2020-01-05 13:49] VITALS: BP 96/47
== END 2020-01-05 13:51 | disposition home or self-care (01) ==
LOC: SDC 10:02 → AC 10:03
PROVIDERS: PCP Family Medicine; Referring Provider Obstetrics & Gynecology; Visit Provider Obstetrics & Gynecology
PROC: 0UDB8ZZ Extraction of Endometrium, Via Natural or Artificial Opening Endoscopic (ICD-10-PCS; CPT 58558; principal; 2020-01-05 11:50)
DX: N95.0 Postmenopausal bleeding (principal); N89.5 Stricture and atresia of vagina; J45.909 Unspecified asthma, uncomplicated; E03.9 Hypothyroidism, unspecified; K21.9 Gastro-esophageal reflux disease without esophagitis; Z85.3 Personal history of malignant neoplasm of breast; Z90.722 Acquired absence of ovaries, bilateral
CPT/HCPCS: 00952; 58558; 36415; 80053; 85027; 85610; 85730; 86850; 86900; 86901; 88305; J7120; J2405

== ENCOUNTER → 2020-01-13 07:00 | Outpatient (CLI) | payer OTHER, SELFPAY ==
[2018-10-08 08:00] VITALS: BMI 20.7
[2019-09-16 15:02] VITALS: BMI 21.4
[2020-01-05 10:25] VITALS: BMI 20.8
--- NOTE | 2020-01-13 06:53 | BI_ITS ---
MAMMOGRAPHY - BILATERAL SCREENING REASON FOR EXAM: Female, 54 years old. Routine annual screening examination. PERTINENT HISTORY: Personal history of breast cancer. Patient has a history of prior right lumpectomy with radiation and chemotherapy. A right stereotactic breast biopsy as well. TECHNIQUE: Digital bilateral breast isiah (3D mammographic acquisition) in the CC and MLO projections. 2-D mediolateral oblique (MLO) and craniocaudad (CC) views of both breasts were obtained. CAD: Full Field Digital Mammography with Computer Added Detection was performed. COMPARISON: Comparison is made with prior study dated January 06, 2019 and January 21, 2018. FINDINGS: Breast Composition: The breasts are extremely dense, which lowers the sensitivity of mammography. Once again, the patient is status post lumpectomy in the inferior anterior medial aspect of the right breast with resultant architectural distortion of the breast and the overlying skin thickening. A tissue clip marker is seen within the nodular density in the upper medial portion of the right breast as well. This is unchanged. No other significant abnormalities are identified. There has been no significant change since the prior study. BI/SCREEN MAMM (CAD) W/ISIAH BILAT IMPRESSION: Stable bilateral screening mammogram. Yearly follow-up mammogram recommended. (A) ASSESSMENT CATEGORY: BIRADS Category 2: Benign. A letter regarding these results will be sent to the patient by the facility within 30 days. Approximately 10% of breast cancers are not detected by mammography. A normal mammogram should not delay biopsy of a clinically suspicious abnormality. [id number] Electronically Signed: Josef Wright, at 8:44 EDT , Service support ,
== END ==
PROVIDERS: Family Provider Family Medicine; PCP Family Medicine; Referring Provider Student in an Organized Health Care Education/Training Program; Visit Provider Student in an Organized Health Care Education/Training Program
DX: Z12.31 Encounter for screening mammogram for malignant neoplasm of breast (principal); Z85.3 Personal history of malignant neoplasm of breast
CPT/HCPCS: 77063; 77067

== ENCOUNTER → 2020-11-02 06:41 | Outpatient (CLI) | payer OTHER, SELFPAY ==
[2018-10-08 08:00] VITALS: BMI 20.7
[2020-08-13 08:19] VITALS: BMI 22.1
--- NOTE | 2020-11-02 06:42 | CT_ITS ---
STUDY: CT CHEST WITH CONTRAST REASON FOR EXAM: Female, 55 years old. RT LUNG NODULE FOLLOW UP, RT BREAST CANCER-LUMPECTOMY RADIATION DOSAGE (If Supplied By Facility): CTDIvol = ( 9.17 ) mGy, DLP = ( 195.61 ) mGycm TECHNIQUE: Transaxial imaging was performed following intravenous administration of IV 100mL Isovue-300. Individualized dose optimization techniques were used for this CT. COMPARISON: 08/22/2018 FINDINGS: There is scarring in the anterior segment of right lung upper lobe and in the anterior aspect of the right middle lobe appears less prominent when compared to the previous study. There is no demonstrated pleural abnormality. Normal heart and pericardium. Normal mediastinum. Normal hilar regions. Normal enhanced pulmonary arteries. Normal aorta arch and descending thoracic aorta. Normal osseous structures. There is no demonstrated abnormality of the visualized upper abdomen. CT/Chest WITH Contrast IMPRESSION: No evidence of metastatic lesions in the chest. Electronically Signed: Sean Oden, at 16:11 EST Tel , Service support ,
== END ==
PROVIDERS: PCP Family Medicine; Referring Provider Internal Medicine Medical Oncology; Visit Provider Internal Medicine Medical Oncology
DX: R91.8 Other nonspecific abnormal finding of lung field (principal); Z85.3 Personal history of malignant neoplasm of breast
CPT/HCPCS: 71260; Q9967

== ENCOUNTER → 2021-01-13 06:57 | Outpatient (CLI) | payer OTHER, SELFPAY ==
[2018-10-08 08:00] VITALS: BMI 20.7
[2020-08-13 08:19] VITALS: BMI 22.1
--- NOTE | 2021-01-13 06:59 | BI_ITS ---
MAMMOGRAPHY - BILATERAL SCREENING REASON FOR EXAM: Female, 55 years old. Routine annual screening examination. PERTINENT HISTORY: PERSONAL HX @ AGE 52 WITH RT LUMPECTOMY WITH CHEMO AND RADIATION - FAM HX OF COUSIN @ AGE 54 TECHNIQUE: Digital bilateral breast isiah (3D mammographic acquisition) in the CC and MLO projections. 2-D mediolateral oblique (MLO) and craniocaudad (CC) views of both breasts were obtained. CAD: Full Field Digital Mammography with Computer Added Detection was performed. COMPARISON: 01/13/2020 and 01/06/2019 FINDINGS: Breast Composition: The breasts are extremely dense, which lowers the sensitivity of mammography. Once again, the patient is status post lumpectomy in the inferior anterior medial aspect of the right breast with resultant architectural distortion of the breast and the overlying skin thickening. A tissue clip marker is seen within the nodular density in the upper medial portion of the right breast as well. This is unchanged. No other significant abnormalities are identified. There has been no significant change since the prior study. BI/SCRN MAMM (CAD)W/ISIAH BILAT IMPRESSION: Stable bilateral screening mammogram. Yearly follow-up mammogram recommended. (A) ASSESSMENT CATEGORY: BIRADS Category 2: Benign. A letter regarding these results will be sent to the patient by the facility within 30 days. Approximately 10% of breast cancers are not detected by mammography. A normal mammogram should not delay biopsy of a clinically suspicious abnormality. [id number] Electronically Signed: Sean Oden MD at 15:05 EST Tel , Service support ,
== END ==
PROVIDERS: PCP Family Medicine; Referring Provider Student in an Organized Health Care Education/Training Program; Visit Provider Student in an Organized Health Care Education/Training Program
DX: Z12.31 Encounter for screening mammogram for malignant neoplasm of breast (principal)
CPT/HCPCS: 77063; 77067

== ENCOUNTER 2022-01-16 07:14 | Outpatient (CLI) | payer OTHER, SELFPAY ==
[2018-10-08 08:00] VITALS: BMI 20.7
--- NOTE | 2022-01-16 07:16 | BI_ITS ---
MAMMOGRAPHY - BILATERAL SCREENING 3-D TOMOSYNTHESIS REASON FOR EXAM: Female, 56 years old. annual screening, h/o right breast cancer PERTINENT HISTORY: No significant family history. TECHNIQUE: 2-D mammograms and 3-D Tomosynthesis of the breast (s) were performed. CAD was performed. COMPARISON: 01/13/2021 FINDINGS: The breast composition is heterogeneously dense that can obscure small breast masses. Scattered benign calcifications are seen. No dense spiculated masses or suspicious microcalcifications are identified. No architectural distortion is identified. There is no skin thickening or retraction. There has been no significant change since the prior study. BI/SCRN MAMM (CAD)W/ISIAH BILAT IMPRESSION: No mammographic signs of malignancy. Routine yearly mammograms recommended. ASSESSMENT CATEGORY: BIRADS Category 1: Negative. A letter regarding these results will be sent to the patient by the facility within 30 days. FOLLOW UP RECOMMENDATION: Yearly follow up mammogram recommended. (A) Approximately 10% of breast cancers are not detected by mammography. A normal mammogram should not delay biopsy of a clinically suspicious abnormality. Electronically Signed: Florin Harris MD at 14:07 EDT ,
== END 2022-01-16 23:59 | disposition home or self-care (01) ==
LOC: OPBI 07:14
PROVIDERS: PCP Family Medicine; Visit Provider Student in an Organized Health Care Education/Training Program
DX: Z12.31 Encounter for screening mammogram for malignant neoplasm of breast (principal)
CPT/HCPCS: 77063; 77067

== ENCOUNTER 2022-02-01 16:09 | Outpatient (CLI) | payer OTHER, SELFPAY ==
[2018-10-08 08:00] VITALS: BMI 20.7
[2022-02-07 20:38] LABS: HPV Reflexed? NOT INDICATED
== END 2022-02-01 23:59 | disposition home or self-care (01) ==
LOC: LABSPEC 16:09
PROVIDERS: PCP Family Medicine; Visit Provider Obstetrics & Gynecology
DX: Z12.4 Encounter for screening for malignant neoplasm of cervix (principal)
CPT/HCPCS: 88175; G0145

== ENCOUNTER → 2023-01-17 | Outpatient (CLI) | payer OTHER, SELFPAY ==
[2018-10-08 08:00] VITALS: BMI 20.7
--- NOTE | 2023-01-17 07:08 | BI_ITS ---
MAMMOGRAPHY - BILATERAL SCREENING 3-D TOMOSYNTHESIS REASON FOR EXAM: Female, 57 years old. Routine screening PERTINENT HISTORY: No significant family history. TECHNIQUE: 2-D mammograms and 3-D Tomosynthesis of the breast (s) were performed. CAD was performed. COMPARISON: 01/13/2021 FINDINGS: The breast composition is heterogeneously dense that can obscure small breast masses. Scattered benign calcifications are seen. No dense spiculated masses or suspicious microcalcifications are identified. No architectural distortion is identified. There is no skin thickening or retraction. There has been no significant change since the prior study. BI/SCRN MAMM (CAD)W/ISIAH BILAT IMPRESSION: No mammographic signs of malignancy. Routine yearly mammograms recommended. ASSESSMENT CATEGORY: BIRADS Category 2: Benign. A letter regarding these results will be sent to the patient by the facility within 30 days. FOLLOW UP RECOMMENDATION: Yearly follow up mammogram recommended. (A) Approximately 10% of breast cancers are not detected by mammography. A normal mammogram should not delay biopsy of a clinically suspicious abnormality. Electronically Signed: Tho Moreno MD at 8:21 EDT ,
== END | disposition home or self-care (01) ==
LOC: OPBI 07:07
PROVIDERS: PCP Family Medicine; Visit Provider Student in an Organized Health Care Education/Training Program
DX: Z12.31 Encounter for screening mammogram for malignant neoplasm of breast (principal)
CPT/HCPCS: 77063; 77067

== ENCOUNTER → 2023-09-04 | Outpatient (CLI) | payer OTHER, SELFPAY ==
[2018-10-08 08:00] VITALS: BMI 20.7
--- NOTE | 2023-09-04 12:55 | RAD_ITS ---
STUDY: X-RAY CHEST REASON FOR EXAM: Female, 58 years old. LUNG NODULE/HX OF BREAST CA TECHNIQUE: PA and lateral views of the chest. COMPARISON: [id number] FINDINGS: Interval removal of the left internal jugular chest port. The lungs are clear and expanded. There is no demonstrated pleural abnormality. Normal size heart. Normal mediastinum and marcello. Normal visualized pulmonary arteries. Normal visualized aortic arch and descending thoracic aorta. Normal visualized thoracic spine. Normal visualized ribs, clavicles, and shoulders. There is no demonstrated abnormality of the visualized soft tissue structures of the upper abdomen. RAD/Chest PA and Lateral IMPRESSION: Normal x-ray examination of the chest. Electronically Signed: Florin Harris MD at 20:43 EDT ,
== END | disposition home or self-care (01) ==
PROVIDERS: Referring Provider Internal Medicine Medical Oncology; Visit Provider Internal Medicine Medical Oncology
DX: R91.1 Solitary pulmonary nodule (principal); Z85.3 Personal history of malignant neoplasm of breast
CPT/HCPCS: 71046

== ENCOUNTER → 2024-01-21 | Outpatient (CLI) | payer OTHER, SELFPAY ==
[2018-10-08 08:00] VITALS: BMI 20.7
--- NOTE | 2024-01-21 07:09 | BI_ITS ---
MAMMOGRAPHY - BILATERAL SCREENING REASON FOR EXAM: Female, 58 years old. Routine annual screening examination. PERTINENT HISTORY: Personal history of breast cancer. Prior lumpectomy with radiation and chemotherapy. TECHNIQUE: Digital bilateral breast isiah (3D mammographic acquisition) in the CC and MLO projections. 2-D mediolateral oblique (MLO) and craniocaudad (CC) views of both breasts were obtained. CAD: Full Field Digital Mammography with Computer Added Detection was performed. COMPARISON: Comparison is made with prior study dated January 17, 2023 and January 16, 2022. FINDINGS: Breast Composition: The breasts are heterogeneously dense, which may obscure small masses. There are no dominant masses or suspicious calcifications. Stable deformity in the inferior medial aspect of the right breast incomplete with history of prior lumpectomy and radiation treatment. A tissue clip marker is seen in the central slightly medial portion of the right breast from prior biopsy. No other significant abnormalities are identified. There has been no significant change since the prior study. BI/SCRN MAMM (CAD)W/ISIAH BILAT IMPRESSION: Stable bilateral screening mammogram. Yearly follow-up mammogram recommended. (A) ASSESSMENT CATEGORY: BIRADS Category 2: Benign. A letter regarding these results will be sent to the patient by the facility within 30 days. Approximately 10% of breast cancers are not detected by mammography. A normal mammogram should not delay biopsy of a clinically suspicious abnormality. [id number] Electronically Signed: Josef Wright MD at 8:28 EDT ,
== END | disposition home or self-care (01) ==
LOC: OPBI 07:09
PROVIDERS: PCP Nurse Practitioner Family; Referring Provider Student in an Organized Health Care Education/Training Program; Visit Provider Student in an Organized Health Care Education/Training Program
DX: Z12.31 Encounter for screening mammogram for malignant neoplasm of breast (principal); Z85.3 Personal history of malignant neoplasm of breast
CPT/HCPCS: 77063; 77067

== ENCOUNTER → 2024-02-18 | Outpatient (CLI) | payer OTHER, SELFPAY ==
[2018-10-08 08:00] VITALS: BMI 20.7
[2024-02-21 16:10] LABS: HPV APTIMA, High Risk Negative (Negative)
== END | disposition home or self-care (01) ==
PROVIDERS: PCP Nurse Practitioner Family; Referring Provider Nurse Practitioner Women's Health; Visit Provider Nurse Practitioner Women's Health
DX: Z12.4 Encounter for screening for malignant neoplasm of cervix (principal)
CPT/HCPCS: 87624; 88175; G0145

== ENCOUNTER → 2024-09-09 | Outpatient (CLI) | payer OTHER, SELFPAY ==
[2018-10-08 08:00] VITALS: BMI 20.7
--- NOTE | 2024-09-09 08:07 | BD_ITS ---
STUDY: DUAL ENERGY X-RAY ABSORPTIOMETRY / DXA REASON FOR EXAM: Female, 59 years old. SCREENING TECHNIQUE: Bone Mineral Density (BMD) measurements of lumbar spine and bilateral hips were obtained. COMPARISON: Comparison is made with prior study June 26, 2018. FINDINGS: Lumbar Spine (L1-L4): g/cm2 (0.710) / T-score (-3.6) / Z-score (-2.2) Findings are suggestive of osteoporosis with a high fracture risk. Left Femur Total: g/cm2 (0.691) / T-score (-2.1) / Z-score (-1.2) Left Femoral Neck: g/cm2 (0.674) / T-score (-1.6) / Z-score (-0.4) Right Femur Total: g/cm2 (0.679) / T-score (-2.2) / Z-score (-1.3) Right Femoral Neck: g/cm2 (0.651) / T-score (-1.8) / Z-score (-0.6) The T-Scores on the most recent prior examination were: Lumbar Spine (L1-L4): There has been worsening of bone density since the previous examination. Left Femur Total: which represents a worsening of 8%. Right Femur Total: which represents a worsening of 5.3%. BD/Dexa Bone Density Study IMPRESSION: The patient is considered osteoporotic as outlined below according to World Tim Organization (WHO) criteria with a high fracture risk. There has been worsening of bone density since the previous examination. Reference Information: The T-score is the number of standard deviations above or below the standard which is normal for young adults at their peak bone mineral density. The World Health Organization (WHO) interprets the T-scores as follows: Above -1 Normal bone density Between -1 and -2.5 Osteopenia Equal to / or below -2.5 Osteoporosis As a practical clinical guideline, osteopenia may be graded as follows: Mild -1 through -1.5 Moderate -1.6 through -2.0 Severe -2.1 through -2.4 The Z-score is the number of standard deviations above or below age-matched controls. A Z-score of less than -1.5 would be considered abnormal. References: 1. NIH Osteoporosis and Related Bone Diseases www osteo.org 2. International Society for Clinical Densitometry www iscd.org 3. National Osteoporosis Foundation www nof.org Electronically Signed: Josef Wright MD at 10:22 EST ,
== END | disposition home or self-care (01) ==
LOC: OPBD 07:54
PROVIDERS: PCP Nurse Practitioner Family; Referring Provider Internal Medicine Medical Oncology; Visit Provider Internal Medicine Medical Oncology
DX: Z13.820 Encounter for screening for osteoporosis (principal); Z85.3 Personal history of malignant neoplasm of breast
CPT/HCPCS: 77080

== ENCOUNTER → 2025-01-27 | Outpatient (CLI) | payer OTHER, SELFPAY ==
[2018-10-08 08:00] VITALS: BMI 20.7
--- NOTE | 2025-01-27 07:15 | BI_ITS ---
EXAM: PROCEDURE: MA Mammogram Digital Screen CLINICAL HISTORY: Screening. Personal history of right breast cancer which was diagnosed in 2018. She had a lumpectomy with radiation therapy and chemotherapy. COMPARISON: Mammogram studies dated 01/21/2024 and 01/17/2023 TECHNIQUE: A bilateral screening mammogram was obtained with MLO and CC views of both breasts with digital breast tomosynthesis. BREAST CANCER RISK ASSESSMENT: Does not appear to have been calculated. FINDINGS: Stable architectural distortion and increased density are seen in the inferior medial aspect of the right breast at the post lumpectomy and postradiation site. This area appears stable. Benign-appearing round microcalcifications are seen in the right breast. A radiopaque clip is seen in the superior aspect. The post biopsy site appears stable. Stable nodular masslike densities are seen in the superior and outer aspect of the right breast. Benign-appearing round microcalcifications and macrocalcifications are seen in the left breast. No suspicious masses, suspicious calcifications or other suspicious mammogram findings are seen in the left breast. CONCLUSION: Right Breast: BI-RADS category 2, benign findings Left Breast: BI-RADS category 2, benign findings Breast Composition: The breasts are heterogeneously dense, which may obscure small masses. Recommendation: Annual screening mammography Thank you for referring your patient to the [facility], if you have any questions, please call us at the performing site listed at the top of the report. [facility] [phone], [facility] , [facility] and [facility] . Reading Location: [id number]
== END | disposition home or self-care (01) ==
PROVIDERS: PCP Nurse Practitioner Family; Referring Provider Student in an Organized Health Care Education/Training Program; Visit Provider Student in an Organized Health Care Education/Training Program
DX: Z12.31 Encounter for screening mammogram for malignant neoplasm of breast (principal)
CPT/HCPCS: 77063; 77067